=== PATIENT | male | born 1945 | race Caucasian/White ===

== ENCOUNTER 2022-05-16 08:00 | Outpatient (NON) | payer OTHER, MEDICARE, SELFPAY | END 2022-05-16 08:01 | disposition home or self-care (01) | LOC: ANHLAB 05-19 10:52 | PROVIDERS: PCP Internal Medicine; Visit Provider Nurse Practitioner | DX: C44.311 Basal cell carcinoma of skin of nose (principal) | CPT/HCPCS: 88305 ==

== ENCOUNTER 2022-06-19 13:15 | Outpatient (NON) | payer OTHER, MEDICARE, SELFPAY | END 2022-06-19 13:16 | disposition home or self-care (01) | PROVIDERS: PCP Internal Medicine; Visit Provider Nurse Practitioner | DX: C44.311 Basal cell carcinoma of skin of nose (principal) | CPT/HCPCS: 88305; 88331 ==

== ENCOUNTER 2023-11-21 17:37 | Emergency (ER) | payer OTHER, MEDICARE, SELFPAY ==
[2023-11-21 17:46] VITALS: BP 146/62; PULSE 57; RESP 16; TEMP 36.7; O2SAT 99
--- NOTE | 2023-11-21 18:05 | ED.WOUNDLAC ---
HPI - Wound/Laceration General Chief Complaint: Wound/Laceration Stated Complaint: Right arm skin tear Time Seen by Provider: 11/21/23 18:05 Source: patient Mode of arrival: ambulatory Limitations: no limitations History of Present Illness HPI narrative: 78 yo M here for tetanus vaccine. Was mowing lawn today and caught R arm on tree limb. Has skin tear to R forearm that he cleaned at home. Bleeding controlled on arrival. All systems reviewed and negative except as noted above. Related Data Home Medications Medication Instructions Recorded Confirmed albuterol sulfate 90 mcg/actuation 1 inh inhalation Q4-6H PRN 05/19/22 breath activated powder Shortness Of Breath Or Wheezing inhaler,sensor atorvastatin 40 mg tablet 40 mg PO DAILY 05/19/22 fluticasone propionate 50 1 spray intranasal DAILY 05/19/22 mcg/actuation nasal spray,suspension gabapentin 300 mg capsule 300 mg PO DAILY 05/19/22 isosorbide dinitrate 30 mg tablet 30 mg PO BID 05/19/22 loratadine 10 mg tablet (Claritin) 10 mg PO DAILY 05/19/22 metoprolol tartrate 25 mg tablet 12.5 mg PO BID 05/19/22 prasugrel 10 mg tablet 10 mg PO DAILY 05/19/22 amiodarone 200 mg tablet mg 11/21/23 aspirin 81 mg chewable tablet 11/21/23 Allergies Allergy/AdvReac Type Severity Reaction Status Date / Time No Known Allergies Allergy Unverified 11/21/23 17:45 Review of Systems Review of Systems: CONSTITUTIONAL: Denies fever, chills, or sweats. EYES: Denies visual changes, redness, or discharge. ENT: Denies rhinorrhea, congestion, sore throat, or otalgia. CARDIOVASCULAR: Denies chest pain, palpitations, or edema. RESPIRATORY: Denies cough or dyspnea. GASTROINTESTINAL: Denies abdominal pain, nausea, vomiting, or diarrhea. GENITOURINARY: Denies dysuria or hematuria. SKIN: reports skin tear to right forearm. MUSCULOSKELETAL: Denies back pain, joint pain, or myalgia. NEUROLOGIC: Denies headache, numbness, or weakness. PSYCHIATRIC: Denies anxiety or depression. All other systems reviewed are negative, except as documented in HPI. [facility] Past Medical History Medical History (Updated 11/21/23 @ 18:20 by Loree Jon NP) Acute arthritis Degenerative joint disease of cervical and lumbar spine Stroke Surgical History Surgical History H/O shoulder surgery History of hernia surgery Family History Family History Other Cancer Heart disease Hypertension Social History Social History Smoking status: Former smoker Tobacco type: cigarettes Alcohol intake: never Substance use: never Substance use type: does not use Lack of Transportation: No Lack of Food: Never True Current Housing: I Have Housing Concerned About Future Housing: No Difficulty Paying Gas/Electric Bills: No Difficulty Paying for Meds: No Currently Unemployed: No Education: Decline to Answer Difficulty w/ Childcare or Family Care: No Living arrangements: with family Comments At time of signature, agree with nursing past medical, surgical, social and family history. There is no relevant family history pertinent to the presenting complaint. Exam Narrative: GENERAL: This is a well-nourished, well-developed patient, in no apparent distress. HEAD: normocephalic, atraumatic. EYES: PERRL. Sclera clear/white. Vision is grossly intact. EARS: External ears normal NOSE: External nose normal NECK: Neck supple, non-tender without lymphadenopathy, masses or thyromegaly. CARDIOVASCULAR: Regular rate and rhythm without murmurs, gallops, or rubs. RESPIRATORY: Clear to auscultation. Breath sounds equal bilaterally. No wheezes, rales, or rhonchi. SKIN: warm, Dry, small skin tear to R forearm. Approx. 1.5 cm with surrounding bruising. ISTAP typeI NEURO: awake, alert, and oriented to person, place an
[2023-11-21] MEDS: TETANUS/DIPHTHERIA TOXOIDS ADSORB 0.5 ML VIAL (*BKC) IM (18:18)
== END 2023-11-21 18:28 | disposition home or self-care (01) ==
PROVIDERS: Emergency Provider Nurse Practitioner Family; PCP Internal Medicine
DX: S51.811A Laceration without foreign body of right forearm, initial encounter (principal); W22.8XXA Striking against or struck by other objects, initial encounter; Y93.H9 Activity, other involving exterior property and land maintenance, building and construction; Z23 Encounter for immunization; M19.90 Unspecified osteoarthritis, unspecified site; M47.812 Spondylosis without myelopathy or radiculopathy, cervical region; M47.816 Spondylosis without myelopathy or radiculopathy, lumbar region
CPT/HCPCS: 90471; 90714; 99213; G0463

== ENCOUNTER 2023-11-28 08:56 | Emergency (ER) | payer OTHER, MEDICARE, SELFPAY ==
[2023-11-28 09:08] VITALS: BP 155/63; PULSE 52; RESP 16; TEMP 36.6; O2SAT 99
--- NOTE | 2023-11-28 09:35 | ED.URI ---
HPI - URI/Sore Throat General Chief Complaint: Upper Respiratory Infection Stated Complaint: congestion,cough Time Seen by Provider: 11/28/23 09:26 Source: patient and RN notes reviewed Mode of arrival: ambulatory Limitations: no limitations History of Present Illness HPI Narrative: Patient presents today with a 3-4 day history of nasal congestion/sinus pressure, rhinorrhea, postnasal drip, mild sore throat, mild cough. Denies fever, shortness of breath. He has tried several things for his symptoms including Robitussin, NyQuil, Tylenol without relief. States his was sick with similar symptoms approximately 2 weeks ago. Related Data Home Medications Medication Instructions Recorded Confirmed albuterol sulfate 90 mcg/actuation 1 inh inhalation Q4-6H PRN 05/19/22 11/28/23 breath activated powder Shortness Of Breath Or Wheezing inhaler,sensor atorvastatin 40 mg tablet 40 mg PO DAILY 05/19/22 11/28/23 fluticasone propionate 50 1 spray intranasal DAILY 05/19/22 11/28/23 mcg/actuation nasal spray,suspension gabapentin 300 mg capsule 300 mg PO DAILY 05/19/22 11/28/23 isosorbide dinitrate 30 mg tablet 30 mg PO BID 05/19/22 11/28/23 loratadine 10 mg tablet (Claritin) 10 mg PO DAILY 05/19/22 11/28/23 metoprolol tartrate 25 mg tablet 12.5 mg PO BID 05/19/22 11/28/23 prasugrel 10 mg tablet 10 mg PO DAILY 05/19/22 11/28/23 amiodarone 200 mg tablet 200 mg PO DAILY 11/21/23 11/28/23 aspirin 81 mg chewable tablet 81 mg PO DAILY 11/21/23 11/28/23 Allergies Allergy/AdvReac Type Severity Reaction Status Date / Time No Known Allergies Allergy Verified 11/28/23 09:20 Review of Systems Review of Systems: CONSTITUTIONAL: Denies body aches, fever, chills, or sweats. EYES: Denies visual changes, redness, or discharge. ENT: Denies otalgia.+ sinus pressure, congestion, rhinorrhea, postnasal drip, sore throat CARDIOVASCULAR: Denies chest pain, palpitations, or edema. RESPIRATORY: Denies dyspnea.+ occasional cough GASTROINTESTINAL: Denies abdominal pain, nausea, vomiting, or diarrhea. GENITOURINARY: Denies dysuria or hematuria. SKIN: Denies rash, itching, or wounds. MUSCULOSKELETAL: Denies back pain, joint pain, or myalgia. NEUROLOGIC: Denies headache, numbness, tingling, or weakness. PSYCH: Denies depression or anxiety. [facility] Past Medical History Medical History Acute arthritis Degenerative joint disease of cervical and lumbar spine Stroke Surgical History Surgical History H/O shoulder surgery History of hernia surgery Family History Family History Other Cancer Heart disease Hypertension Social History Social History Smoking status: Former smoker Tobacco type: cigarettes Alcohol intake: never Substance use: never Substance use type: does not use Lack of Transportation: No Lack of Food: Never True Current Housing: I Have Housing Concerned About Future Housing: No Difficulty Paying Gas/Electric Bills: No Difficulty Paying for Meds: No Currently Unemployed: No Education: Decline to Answer Difficulty w/ Childcare or Family Care: No Living arrangements: with family Comments At time of signature, I have reviewed and agree with nursing past medical, surgical, social and family history unless otherwise noted. Please see nursing chart for further information. There is no relevant family history pertinent to the presenting complaint Exam Narrative: GENERAL: Well-appearing, well-nourished, and in no acute distress. HEAD: Normocephalic, atraumatic. EYES: EOMI. No redness or drainage. Conjunctivae normal. ENT: Mucous membranes pink and moist. Nares clear. Turbinates normal bilaterally. No rhinorrhea. TMs normal bilaterally. Throat n
== END 2023-11-28 09:42 | disposition home or self-care (01) ==
PROVIDERS: Emergency Provider Nurse Practitioner; PCP Internal Medicine
DX: J06.9 Acute upper respiratory infection, unspecified (principal); Z87.891 Personal history of nicotine dependence; M47.812 Spondylosis without myelopathy or radiculopathy, cervical region; M47.816 Spondylosis without myelopathy or radiculopathy, lumbar region; Z86.73 Personal history of transient ischemic attack (TIA), and cerebral infarction without residual deficits
CPT/HCPCS: 99211; G0463

== ENCOUNTER 2024-03-31 10:49 | Outpatient (CLI) | payer OTHER, MEDICARE, SELFPAY ==
--- OUTSIDE RECORDS SUMMARY | 2024-03-31 11:39 | XMS_ITS | Referral Summary ---
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 This disclosure is being madepursuant to the Care Everywhere program and may not contain all information available regarding this patient. Last updated 17.[employer] [facility] Allergies No known active allergies Medications * Be aware that medications may not be up to date on this document. Alwaysverify current medications with the patient. Medication Sig Dispensed Refills Start Date End Date Status fluticasone propionate (FLONASE) 50 MCG/ACT nasal spray [place] 1 spray into the nose once daily Active gabapentin (NEURONTIN) 300 MG capsule TAKE 1 CAPSULE BY MOUTH THREE TIMES A DAY 01/06/2020 Active roflumilast (DALIRESP) 500 MCG tablet Take 500 mcg by mouth once daily Active prasugrel (EFFIENT) 10 MG tablet Take 10 mg by mouth once daily 07/16/2019 Active atorvastatin (LIPITOR) 40 MG tablet TAKE 1 TABLET BY MOUTH EVERY DAY 02/26/2020 Active Loratadine 10 MG Take 10 mg by mouth once daily Active meloxicam (MOBIC) 15 MG tablet TAKE 1 TABLET BY MOUTH EVERY DAY 02/05/2020 Active metoprolol succinate XL 24hr (TOPROL XL) 25 MG tablet TAKE 1 TABLET BY MOUTH EVERY DAY 03/10/2020 Active tiotropium (SPIRIVA RESPIMAT) 2.5 MCG/ACT inhaler Inhale 2 puffs by mouth Active ISOSORBIDE DINITRATE PO Active ibuprofen (MOTRIN) 800 MG tablet Take 800 mg by mouth every 6 hours as needed for Pain Active diphenhydramine 12.5mg/ml, 30ml,; visc lidocaine 2%, 30ml,; maalox, 30ml, (MIRACLE MOUTHWASH) SUSP 1:1:1 solution of viscous lidocaine 2%, Maalox, diphenhydramine 12.5mg/5ml elixir 120 mL 06/05/2020 Active Social History Tobacco Use Types Packs/Day Years Used Date Smoking Tobacco: Former Cigarettes Smokeless Tobacco: Never Sex and Gender Information Value Date Recorded Sex Assigned at Not on file Gender Identity Not on file Sexual Orientation Not on file Last Filed Vital Signs Vital Sign Reading Time Taken Comments Blood Pressure 140/72 06/05/2020 3:32 PM CDT Pulse 71 06/05/2020 3:32 PM CDT Temperature 36.6 C (97.8 F) 06/05/2020 3:32 PM CDT Respiratory Rate 16 06/05/2020 3:32 PM CDT Oxygen Saturation 98% 06/05/2020 3:32 PM CDT Inhaled Oxygen Concentration - - Weight 86.2 kg (190 lb) 06/05/2020 3:32 PM CDT Height 175.3 cm (5' 9 ) 06/05/2020 3:32 PM CDT Body Mass Index 28.06 06/05/2020 3:32 PM CDT Plan of Treatment Not on file Care Teams Front End Wheel Loader Operator Relationship Specialty Start Date End Date Fredy Malagon MD [address] Malagon [address] [place] [id number] PCP - General 06/09/22
--- OUTSIDE RECORDS SUMMARY | 2024-03-31 11:39 | XMS_ITS | Clinical Summary ---
Author Organization 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,non-owned Affiliates and Associated Physician Practices is amultiple site organization consisting of ambulatory clinics and hospital sitesin [place], [place], [place] and [place]. This disclosure is being madepursuant to the Care Everywhere program and may not contain all information available regarding this patient. Last updated 17.[facility] [facility] Allergies No known active allergies Medications * Be aware that medications may not be up to date on this document. Alwaysverify current medications with the patient. Medication Sig Dispensed Refills Start Date End Date Status fluticasone propionate (FLONASE) 50 MCG/ACT nasal spray [place] 1 spray into the nose once daily [...] 06/05/2020 3:32 PM CDT Plan of Treatment Health Maintenance Due Date Last Done Comments MEDICARE AWV 12 MONTHS 1945 HEPATITIS C SCREENING 08/10/1965 DTAP/TDAP/TD VACCINES (1 - Tdap) 08/14/1966 PNEUMOCOCCAL VACCINE 50+ (1 of 1 - PCV) 08/14/1997 ZOSTER VACCINE (1 of 2) 08/14/1997 Respiratory Syncytial Virus (RSV) Vaccine Pt: or over 60 yrs (1 - 1-dose 75+ series) 08/14/2022 COVID-19 VACCINE (3 - 2023-2 5 season) 2023 05/09/2020, 04/18/2020 INFLUENZA VACCINE (#1) 2023 , 10/16/2018 DEPRESSION SCREENING 02/20/2024 HEPATITIS B VACCINE Aged Out No longe r eligible based on patient's age to complete this topic HIB VACCINE Aged Out No longer eligi ble based on patient's age to complete this topic HPV VACCINE Aged Out No longer eligi ble based on patient's age to complete this topic MENINGOCOCCAL (Group B) VACCINE Aged Out No longer eligible b ased on patient's age to complete this topic MENINGOCOCCAL VACCINE Aged Out No danielle emmanuel eligible based on patient's age to complete this topic Care Teams Solder Making Laborer Relationship Specialty Start Date End Date Fredy Malagon MD [address] [place] [id number] PCP - General 06/09/22
--- OUTSIDE RECORDS SUMMARY | 2024-03-31 11:39 | XMS_ITS | Referral Summary ---
Author Organization [facility] Address [address] [place] [address] Care Team Providers Care Soils Technician Name Role Phone Fredy Malagon MD Primary Care Provider [phone] Trav Molina MD Unavailable Temo Ureña MD Unavailable [phone] Encounters Date Type Department Care Team Description 03/21/2024 Orders Only [facility] [address] [place] [id number] Fredy Malagon MD Encounter for examination of ears and hearing after failed hearing screening (Primary Dx) 02/27/2024 Telephone [facility] [address] [place] [address] Jose Miguel Cha MA 02/26/2024 8:45 AM DRAFTSPERSON Office Visit [facility] at [address] [place] [address] Temo Ureña MD PAOD (peripheral arterial occlusive disease) (CMS/HCC) (HCC) (Primary Dx); Carotid stenosis, bilateral; Mixed hyperlipidemia; 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 (CMS/HCC) (HCC) 02/11/2024 12:45 PM DRAFTSPERSON - 02/11/2024 11:59 PM DRAFTSPERSON Hospital Encounter [facility] [address] [place] [address] Atherosclerosis of [place]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, bilateral legs (HCC) Discharge Disposition: Discharge to home or self care 02/06/2024 Orders Only [facility] [address] [place] [phone] Temo Ureña MD Atherosclerosis of [place]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, bilateral legs (HCC) (Primary Dx) 02/04/2024 7:21 AM DRAFTSPERSON - 02/04/2024 11:59 PM DRAFTSPERSON Hospital Encounter [facility] [address] [place] [address] PVC (premature ventricular contraction) Discharge Disposition: Discharge to home or self care 02/04/2024 7:21 AM DRAFTSPERSON - 02/04/2024 11:59 PM DRAFTSPERSON Hospital Encounter [facility] [address] [place] [address] Atherosclerosis of [place]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, bilateral legs (HCC); Atherosclerosis of [place]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, right leg (HCC) Discharge Disposition: Discharge to home or self care 01/10/2024 9:45 AM DRAFTSPERSON Office Visit [facility] [address] [place] [address] Fredy Malagon MD History of atherosclerotic heart disease (Primary Dx); Medicare annual wellness visit, subsequent; Mixed hyperlipidemia; Thyroid nodule; Anxiety; Essential hypertension from Last 3 Months Allergies Active Allergy Reactions Criticality Noted Date Comments Caffeine Anxiety Low 10/24/2012 Levofloxacin Dizziness,Nausea only Reaction: dizzy, nausea, Ramipril Cough Low 04/04/2018 Salicylamide Anxiety Low 10/24/2012 Takes meloxicam at home 04/18/19 Medications fluticasone (FLONASE) 50 mcg/actuation nasal spray Administer 1 spray into each nostril daily Active albuterol HFA (PROVENTIL HFA,VENTOLIN HFA,PROAIR HFA) 90 mcg/actuation inhaler Inhale 2 puffs every 4 (four) hours as needed for wheezing or shortness of breath. 18 g 04/06/19 19 Active TiZANidine (ZANAFLEX) 2 mg capsuleIndicati ons:Chronic midline low back pain with bilateral sciatica Take 1 capsule (2 mg total) by mouth nightly as needed for muscle spasms 14 capsule 10/19/19 21 Active Additional Information Patient not taking.Reported on 02/26/2024 traMADoL (ULTRAM) 50 mg tabletIndicatio ns:Chronic midline low back pain with bilateral sciatica Take 1 tablet (50mg total) by mouth twice daily as needed for back pain. 14 tablet 12/15/19 21 Active Additional Information Patient not taking.Reported on 02/26/2024 aspirin 81 mg chewable tablet Take 1 tablet (81 mg total) by mouth daily 30 tablet 11 03/06/19 24 Active atorvastatin (LIPITOR) 80 mg tablet Take 1 tablet (80 mg total) by mouth daily 90 tablet 3 04/09/19 24 025 Active metoprolol XL (TOPROL-XL) 50 mg extended release tablet Take 1 tablet (50 mg total) by mouth daily 90 tablet 3 06/25/19 24 025 Active loratadine (CLARITIN) 10 mg tablet Take 1 tablet (10 mg total) by mouth daily Active naproxen sodium 220 mg capsule Take 200 mg by mouth every 4 (four) hours as needed (pain) Active amiodarone (PACERONE) 200 mg tablet Take 1 tablet (200 mg total) by mouth daily 30 tablet 06/29/19 24 025 Active HYDROcodone-oleg taminophen (NORCO) 5-325 mg per tabletIndicatio ns:Pain Take 1-2 tablets by mouth every 4 (four) hours as needed for pain Do not exceed 8 tablets/day. 20 tablet 09/01/19 24 Active gabapentin (NEURONTIN) 300 mg capsule TAKE 1 CAPSULE BY MOUTH TWICE A DAY 60 capsule 5 11/07/19 24 Active promethazine-DM (PROMETHAZINE-D M) 1.25-3 mg/mL syrup Take 5 mL by mouth every 4 (four) hours as needed for cough 120 mL 11/09/19 24 Active prasugreL (EFFIENT) tablet TAKE 1 TABLET BY MOUTH EVERY DAY 30 tablet 11 11/22/19 24 Active isosorbide mononitrate ER (IMDUR) 30 mg 24 hr tablet TAKE 1 TABLET BY MOUTH EVERY DAY 30 tablet 11 03/28/19 25 Active isosorbide mononitrate ER (IMDUR) 30 mg 24 hr tablet TAKE 1 TABLET BY MOUTH EVERY DAY 90 tablet 3 12/19/19 23 025 Discontinued Active Problems Problem Noted Date Diagnosed Date Viral URI with cough 11/09/2023 Assessment & Plan (11/15/2023 9:25 PM CDT): Acute, URI symptoms for 1 week. Tested negative for COVID at home. Mild frontal sinus tenderness and clear postnasal drip noted on exam. No other acute findings, vitals stable. Likely viral, discussed typical timeline. We will prescribe promethazine DM as needed for cough. You may take a cough suppressant to calm your cough (Robitussin, delsym, or nyquil). If your cough is productive or you have tight chest congestion with thick mucus- you can use a cough expectorant like Mucinex. Benadryl/Zyrtec/oscar can be used to dry up a runny nose or post nasal drip. AVOID DECONGESTANTS. Flonase or Nasacort will also help with sinus pressure and nasal drip both. Tylenol/Ibuprofen as needed for pain. Increase fluids (water) Cool mist humidifier at night Use sinus rinses to help flush bacteria and help with congestion. Encouraged honey, marshmallows, gelatin, or chloraseptic to help coat throat. Call with any worsening or persistent symptoms. VT (ventricular tachycardia) 11/05/2023 Acute right-sided thoracic back pain 09/09/2023 Assessment & Plan (09/09/2023 4:47 PM CDT): Patient is seen on 08/29/2023 secondary to back pain. Stated he had a fall at home approximately 9 days prior to his visit with me was in midclavicular line approximately 10th rib posteriorly. Not any hematuria denied any problems breathing worse with certain movement. Patient was taking ibuprofen with some relief. Exam no shortness a breath lungs are clear no wheezing no rhonchi no acute distress.. Aware of the treatment for fractured rib his pain control. Pain in the time of exam is from a 3-6/10 level. Depending on activity and time of day Paroxysmal ventricular tachycardia 06/25/2023 Assessment & Plan (07/10/2023 4:42 PM CDT): Patient was experiencing dizziness 30 day Holter monitor done revealing a 16 beat ventricular tachycardia. He has had increase in his metoprolol and he is now on amiodarone. Is managed obviously by Cardiology. Patient has made me aware of a change in his health since his last visit with me and reason for changes in medications. Near syncope 04/30/2023 Assessment & Plan (07/10/2023 4:44 PM CDT): Evaluation for Cardiology for syncopal episode nonsustained V-tach found on thirty day night monitor monitor. Claudication 03/06/2023 Anxiety 02/22/2023 Assessment & Plan (01/11/2024 1:14 PM DRAFTSPERSON): Anxiety stable at this time no longer on Lexapro or BuSpar Assessment & Plan (02/23/2023 5:03 PM DRAFTSPERSON): Patient has noticed increased anxiety expressed in the former being very short tempered. Getting upset very quickly or a low threshold in terms of what triggers him to be upset. Patient is also having repetitive thoughts in terms of completing task I am going to start him on BuSpar 10 mg mg b.i.d. advised me side effects advised him if it does not work increase the dose by 2 tablets per day. And this is not effective he needs to contact me. Patient expresses regret of retiring.. 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 We did discuss some tape that he may enjoy he does less than 2 westerns in a shared with him the books that I less than 2 on tape. He has listen the pod cast he enjoys. Initially as started this gentleman on Lexapro however does of drug interaction with effient anticoagulant use because the patient has stent placement. For he is on BuSpar starting low-dose Skin lesion 01/08/2023 Assessment & Plan (01/08/2023 5:33 PM DRAFTSPERSON): Patient is a right side of his scalp frontal region very suggestive of basal cell carcinoma. He previously had a basal cell carcinoma earlier this year was successfully removed patient is referred back to [facility] plastic surgery where he previously had surgery. 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 Looking at has a small create of formation consistent with basal cell carcinoma.. Refer to plastic surgery appointment for 05/15/[address] Kiet Lancaster with [facility] has been made. History of exudative age-related macular degener ation 12/20/2021 History of atherosclerotic heart disease 022 Left hip pain 10/19/2020 Assessment & Plan (08/18/2021 11:54 AM CDT): Patient pain is improved. He had MRIs of his back in thought back problems were aggravate hip is uncertain as to etiology is improving. Assessment & Plan (10/19/2020 7:47 AM CDT): Patient is reporting pain in the left groin that is sharp and improves with time. Most likely this pain is radiating from the lower back. However, given its location we will do imaging of the left hip to r/o significant osteoarthritis or fracture. Abnormal finding on thallium stress test 021 PAOD (peripheral arterial occlusive disease) (CM S/HCC) 09/30/2019 Assessment & Plan (01/11/2024 1:11 PM DRAFTSPERSON): Patient advised me he is comfortable with ambulating he has had stents placed in his lower legs and under care of Dr. Ureña invasive Cardiology Assessment & Plan (07/10/2023 5:00 PM CDT): 70% stenosis right PA D patient has a follow-up with cardiology next week remains on aspirin his lipid profiles in therapeutic range treated with atorvastatin 80 mg daily Chronic bilateral low back pain with sciatica Assessment & Plan (08/18/2021 11:54 AM CDT): Patient has seen multiple specialists over the past year regarding his back. This includes pain specialist and neurosurgeon.. Back pain is improved this time he ambulates well without any difficulty no significant neuropathy. Will continue present medications no change in therapy. Patient reasonable comfortable he has some degree of pain between 2 and 4/10. No neurological deficit Assessment & Plan (01/24/2021 5:40 PM DRAFTSPERSON): Patient is having a flare for back pain is under care Pain Clinic they gave him a epidural injection a work perfect for 1 day. His pain is keeping up at night difficulty walking because of pain neurological deficit he has appointment with the Pain Clinic in 1 week at this point I am going to put him on prednisone 20 mg twice a day for 10 day supply. Reviewed his recent CT scan of backed shows severe spinal stenosis. It is my understanding he will be talking with the pain clinic about a possible referral to a surgeon Assessment & Plan (12/14/2020 10:54 AM CDT): Patient continues to have complaints of persistent low back pain. He has completed two rounds of steroids and he states that they have been helpful. However, as soon as they are done he states pain returns. He has yet to begin PT as recommended. 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 Have discussed with patient that he needs to begin PT, which he is agreeable to and that he needs to remain off work. He was given work note until f/u with Dr. Malagon can be scheduled. We will also check inflammatory markers with ESR and CRP as noted per Dr. Malagon last visit. We will refer to pain management and for possible steroid injection as well. Will also send tramadol x 7 days for pain. He will f/u on 12/24/20 or sooner if needed. Assessment & Plan (11/01/2020 2:26 PM CDT): Back pain 60-70% improved. Patient can do daily functions without difficulty. Will leave a refill for prednisone case he has a flare-up in the near future Assessment & Plan (10/27/2020 2:29 PM CDT): Patient advised me his back pain is getting worse. He has great difficulty going from sitting test standing in the morning is walking because of pain pain goes across his back approximately L3 down to L5 and pain goes down into his buttocks bilateral does not go down to his knee. On exam patient appears to be very uncomfortable going from sitting standing walks very slow.. A posterior buttocks and thigh hurts more than the right. X-rays of his hips and low back area performed on 10/19/2020 of x-rays were normal arthritic changes apparent in lumbar area. Plans at this time prednisone 20 mg twice a day 5 days.. No improvement look for other causes of back pain including and sed rate in checking for multiple myeloma. Assessment & Plan (10/19/2020 7:46 AM CDT): Patient is reporting for the last several months, he has had increasing low back pain that radiates into the buttocks and bilateral LE. Pain is worse after sitting a prolonged period and better after ambulation. Patient symptoms and exam findings are consistent with bilateral sciatica. He has been using meloxicam and adding aleve at home with some improvement. He states he has been on the meloxicam 3 years and has not seen great pain improvement. We discussed that he cannot use both meloxicam or aleve, it needs to be either or and would recommend he use tylenol alone with his history of cardiac disease. Patient voiced understanding. He was offered tramadol to help with pain, but declined as he has used in the past and did not find helpful. Given that we will begin physical therapy and add a muscle relaxer. We will do imaging of L-spine today to r/o any fracture or misalignment. He can use OTC therapies as well such as tylenol, ice/heat and muscle creams. He will return in 4 weeks for recheck or sooner if needed. Assessment & Plan (09/25/2019 3:56 PM CDT): Patient 90% improved no further therapy indicated. Assessment & Plan (09/11/2019 11:09 AM CDT): Low back pain approximate 10% better. Patient not using ibuprofen on daily basis. Patient has absolutely no sciatica known bladder or bowel problems no neurovascular compromise. Advised patient he can use ibuprofen daily. He found heat to his back does help. He has a topical back pad with lidocaine may be of help. Further patient is indicated. Patient again is not severely ill he is slowly getting better.. He is concerned about muscle relaxant which I do not think a help him he has very little stiffness. Assessment & Plan (09/02/2019 6:19 PM CDT): Patient developed acute low back pain 5 days ago after cutting the yd this is not unusual activity for him. Pain for the health 5 down to cheeks of his buttocks down about [address]. Patient is improving he has been using 800 mg of ibuprofen tonight putting he and taking warm showers. Patient issue could not stand up straight he can now do this without any difficulty.. Patient's exam begin a is full flexion of his knees and and hips no pain on palpating over back. No neurological deficit.. Recommend conservative treatment continue ibuprofen at night a into once a day if he is needs to. Anticipate full recovery. Patient's advised very good chance this will reoccur at some point in the future. Atherosclerosis of [place] co ronary artery of [place] heart with angina pectoris ([facility]) 03/07/2019 Carotid stenosis, bilateral 03/07/2019 Atherosclerosis of [place] artery of both lower e xtremities 01/10/2019 Overview (01/10/2019): Added automatically from request for surgery [id number] Assessment & Plan (12/20/2021 5:36 PM CDT): PATIENT CONTINUES SEE CARDIOLOGY YEARLY SO HAS PA D IS STABLE AT THIS TIME Hyperlipidemia 01/07/2019 Assessment & Plan (01/11/2024 1:17 PM DRAFTSPERSON): Patient is maintained on atorvastatin 80 mg daily lipid profile in therapeutic range no change in therapy Component Latest Ref Rng 05/26/2023 Cholesterol 30 - 199 mg/dL 106 Triglycerides <=149 mg/dL 54 HDL Cholesterol >=40 mg/dL 26 (L) LDL Cholesterol Calc <=129 mg/dL 69 Non-HDL Cholesterol mg/dL 80 Chol/HDL ratio 4 Legend: (L) Low Mixed hyperlipidemia 01/07/2019 Assessment & Plan (07/10/2023 4:47 PM CDT): Patient's lipid profile at target he is on atorvastatin 80 mg daily Component Latest Ref Rng 05/26/2023 Cholesterol 30 - 199 mg/dL 106 Triglycerides <=149 mg/dL 54 HDL Cholesterol >=40 mg/dL 26 (L) LDL Cholesterol Calc <=129 mg/dL 69 Non-HDL Cholesterol mg/dL 80 Chol/HDL ratio 4 Legend: (L) Low Atherosclerosis of [place] of both lower extremities with intermittent claudication 10/02/2018 Overview (10/02/2018): Added automatically from request for surgery [id number] Assessment & Plan (12/24/2018 6:23 PM DRAFTSPERSON): Patient has successful stent placed in the left lower extremity October 12, 2018. Patient is less symptomatic as result.. Still being observed for problem with the right lower extremities as well as carotid ultrasounds have been completed. He is under care of Cardiology . Thyroid nodule 08/18/2018 Assessment & Plan (01/11/2024 1:11 PM DRAFTSPERSON): Date on thyroid nodule has been ordered by his marble installer this is scheduled for next week Assessment & Plan (12/24/2018 6:25 PM DRAFTSPERSON): Patient's a sonogram schedule for February 2019. Assessment & Plan (09/09/2018 6:16 PM CDT): Patient's has a pulmonary nodule confirmed on sonogram is recommended he do surveillance will repeat the ultrasound in 6 months. Assessment & Plan (08/24/2018 6:58 PM CDT): Thyroid nodule was found on recent pulmonary imaging referral for ultrasound of thyroid has been made. Assessment & Plan (08/18/2018 1:24 PM CDT): HRCT on July 30, 2018 has shown: 1. Mild to moderate pulmonary emphysema with bilateral bronchiectasis greater than lower lobes, 2. No Pulmonary consolidation, 3. Indeterminate 12 mm left lobe thyroid nodule. Suggest ultrasound evaluation. The patient was advised to see his primary care physician for thyroid nodule. BMI 31.0-31.9,adult 07/03/2018 Assessment & Plan (08/17/2018 11:45 AM CDT): Stable BMI. No history of weight loss over the past 12 months. Assessment & Plan (07/03/2018 11:03 PM CDT): Weight management counseling was provided for 10 minutes. Lifestyle change and diet modification were discussed with the patient in detail. Chronic cough 03/26/2018 Assessment & Plan (07/01/2020 12:14 PM CDT): Patient has history of chronic cough, but patient reports recently it is increased and more frequent. We will do CXR to r/o any acute cardiopulmonary process. He will continue outlined sinus care and steroids. If persistent will consider PFTS. Assessment & Plan (12/24/2018 6:20 PM DRAFTSPERSON): Patient non care jump roll operator at [facility] diagnosis emphysema he is doing reasonably well with present medications of albuterol HFA p.r.n. Her medication Acapella this is according to the jump roll operator notes Assessment & Plan (08/24/2018 6:58 PM CDT): Patient was seen by jump roll operator Dr. Cárdenas made a diagnosis of emphysema with bronchiectasis in place him on antibiotic. Patient was given antibiotic for week Augmentin is advised according to the patient that he needs to have a maintenance antibiotic following that.. Is no mention in his pulmonology note regarding maintenance antibiotic. Patient has improved I reviewed the entire note his PFTs were good his 6 minutes walk was excellent.. At this time refer this patient on jump roll operator hopefully at [facility]. Patient is taking the medication Treligy . Patient's coughing is less. Assessment & Plan (08/18/2018 1:27 PM CDT): Possible causes: 1. Chronic postnasal drip, 2. Chronic bronchiectasis. Today the patient was started on Daliresp and a course of Augmentin. He was also advised to continue with combination of Flonase and cetirizine. Assessment & Plan (08/17/2018 12:12 PM CDT): Possible causes: 1. Chronic postnasal drip, 2. Chronic bronchitis. 3. GERD PFT has shown mild impairment of diffusion capacity but no evidence of airway hyperreactivity. Six minutes walk test has shown no desaturation. The patient was advised to continue with combination of cetirizine and fluticasone nasal spray. He was also started on combination of Spiriva Respimat and gabapentin. HRCT was ordered for evaluation of ILD. Assessment & Plan (07/03/2018 11:08 PM CDT): Etiology of chronic cough is multifactorial includin. Chronic postnasal drip, 2. Possible airway hyperreactivity, 3. Chronic bronchitis. The patient was advised to continue with combination of cetirizine and fluticasone nasal spray. We will also continue with albuterol inhaler 2 puffs as needed. PFT, 6 MWT and sputum culture for AFB and air week organisms were ordered. Assessment & Plan (06/24/2018 5:45 PM CDT): Patient reported that his cough decreased by 90% after discontinue the Oleg inhibitors. However his inhalers also helped him with respect cough. Now he is getting some return of the cough. Patient has never been treated with anti GERD medication. Will start him on omeprazole.. Because of chronicity of this particular problem advised him he needs to see pulmonology. Assessment & Plan (04/15/2018 11:57 AM DRAFTSPERSON): Patient's cough is changed to dry cough is pretty much resolved 75% improved. Went to emergency room approximately 10 days ago a nonstop coughing more ER physician advised him this cough is probably medication related/OLEG-inhibitor ramipril. Patient now has a productive cough clear to yellow sputum he does not feel sick. Plans Shannon was given The mucus production. PATIENT ADVISED TO GIVE ME A CALL NEXT SUNDAY GIVE ME A PRECISE UP-TO-DATE REPORT REGARDING HIS COUGHING STATUS. Assessment & Plan (04/04/2018 2:47 PM DRAFTSPERSON): Patient's now the advised me that he is having a nonproductive cough 80 90% of the time. This is associated with tickle in his throat. Patient was questioned on previous visit regarding a productive cough and was my impression that record records have a productive cough. He says cough is really been going on closer to 3 months and is most exam nonproductive 80 that I would pursue the time. This time discontinue ramipril/OLEG-inhibitor. Patient advised to give me a call if he still coughing a 1 month out anticipate his cough for week resolved in 2 weeks. Patient does not feel sick and has no respiratory compromise with cough. I will see this patient next several months will monitor his blood pressure. Assessment & Plan (03/26/2018 10:56 AM DRAFTSPERSON): Patient has a consistent productive cough since February 10/6 weeks ago. Patient's bringing up thick green is Robitussin DM does help. He has no chest pain has no fever no chills and is head congestion is improved by 80%. Chest x-ray I did not identify any acute changes. Examined if his lungs are normal. Plans at this time doxycycline 100 mg twice a day for 10 days. Patient give me a progress report for around the March which will mean 8 weeks out since onset of his cough. He is not 90% improved will get a CT scan of his chest and referral to pulmonology. Patient was advised this possibly is assess thick tenacious sputum that he may have to be suction out. Osteoarthritis of multiple joints 02/28/2017 Assessment & Plan (07/08/2022 3:18 PM CDT): Patient less symptomatic with joint pains at this time. Assessment & Plan (02/28/2017 4:20 PM DRAFTSPERSON): Osteoarthritis occasional joint pains Naprosyn works very well for minutes tolerated does not increased abdominal pain. Chronic rhinitis 02/28/2017 Assessment & Plan (02/28/2017 4:20 PM DRAFTSPERSON): Patient utilizing Flonase effective in helping with this chronic rhinitis Medicare annual wellness visit, subsequent 02/26 Assessment & Plan (01/11/2024 12:57 PM DRAFTSPERSON): History and physical completed patient's health risk assessment health maintenance reviewed and addressed. Patient's feels well he does not identify any new health problems since his last annual exam. He continues to follow-up with cardiology. Assessment & Plan (01/08/2023 5:31 PM DRAFTSPERSON): History and physical completed patient's health risk assessment health maintenance reviewed in addressed. New health problem patient's swishes lesion on right side of his scalp referral to Plastic surgery made. History of basal cell carcinoma June 2022 successful removed. Recent flu vaccine which is not shown up in his file yet Assessment & Plan (12/20/2021 5:28 PM CDT): History and physical completed health maintenance health wrist reviewed in addressed patient has completed COVID and flu vaccines for this year. He is getting a colonoscopy a on tomorrow is a follow-up to his positive in a Cologuard test. Assessment & Plan (08/18/2021 12:22 PM CDT): Patient has agreed to get a DNA Cologuard studies screening for colon cancer request for DNA Cologuard Assessment & Plan (12/24/2018 6:27 PM DRAFTSPERSON): Patient's history and physical completed health risk assessment health maintenance reviewed. Immunization discussed in deficiency is addressed.. Please see assessment and plans on going chronic health problems Assessment & Plan (02/28/2017 4:17 PM DRAFTSPERSON): History and physical completed patient is very concerned regarding development of cancer. His concerns grow out of a experience of seeing several family members with cancers was good friends way cancer. This time his laboratory results from previous visits reviewed will order PSA level today is exam is unremarkable//normal adult male exam. 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 Viagra prescribed his insurance will pay for 8 tablets per month. Side effects of medications discussed. Essential hypertension 08/31/2016 Assessment & Plan (01/11/2024 1:13 PM DRAFTSPERSON): Blood pressure 142/60 predominant blood pressure this year has been at goal. No change in therapy he is on metoprolol 50 mg daily Assessment & Plan (11/15/2023 9:24 PM CDT): Chronic, at goal. BP stable in office today on current therapy. No acute findings on exam.advised to avoid decongestant use with current URI, see plan above. Continue metoprolol and low salt diet. Assessment & Plan (07/10/2023 4:46 PM CDT): Blood pressure not controlled on today's visit 152/70 visit on 06/29/2023 with Cardiology 171/84.. On that day at a pulse of 49 making no changes in patient's blood pressure medications. He has a follow-up appointment with Cardiology in the next 2-3 weeks medications being made based on his findings on cardiac arrhythmia and blood pressure Assessment & Plan (01/08/2023 5:32 PM DRAFTSPERSON): Pressure well controlled patient is tolerating medications Assessment & Plan (07/08/2022 3:17 PM CDT): Blood pressure remains well controlled patient is tolerating medications no change in therapy Assessment & Plan (04/20/2022 2:07 PM DRAFTSPERSON): Blood pressure remains well controlled no change in therapy Assessment & Plan (12/20/2021 5:28 PM CDT): Blood pressure well controlled patient is tolerating medications no change in therapy Assessment & Plan (11/01/2020 2:29 PM CDT): Blood pressure well controlled patient tolerating medications no change in therapy. Assessment & Plan (09/02/2019 6:19 PM CDT): Blood pressure remains well controlled patient is tolerating medication no change in therapy Assessment & Plan (12/24/2018 6:23 PM DRAFTSPERSON): Blood pressure is very well control no change in therapy patient is tolerating medications Assessment & Plan (08/24/2018 7:01 PM CDT): Hypertension remains well control no change in therapy see him back in the next several months regarding his hypertension management. Patient is tolerating medications. Assessment & Plan (04/15/2018 12:03 PM DRAFTSPERSON): Hypertension is well controlled at this time. Ramipril/Oleg inhibitor was discontinued secondary to cough. Few days ago he felt real dizzy a and headache he went back on ramipril for 1 day and the symptoms resolved. At this time and start him on amlodipine 2.5 mg 1 tablet daily.. Patient's warnings side effect swelling or may be too strong for him. Assessment & Plan (01/17/2017 11:38 AM DRAFTSPERSON): Hypertension is unchanged. Continue current treatment regimen. Dietary sodium restriction. Regular aerobic exercise. Continue current medications. Blood pressure will be reassessed at the next regular appointment. Assessment & Plan (08/31/2016 5:16 PM CDT): Hypertension is unchanged. Continue current treatment regimen. Blood pressure will be reassessed at the next regular appointment. Mild intermittent asthma 08/31/2016 Assessment & Plan (02/28/2017 4:21 PM DRAFTSPERSON): Albuterol p.r.n. for asthma works effectively for him. Assessment & Plan (08/31/2016 5:17 PM CDT): Asthma Control using albuterol HFA on a p.r.n. Basis. Resolved Problems Problem Noted Date Diagnosed Date Resolved Date VT (ventricular tachycardia) 06/26/2023 07/10/2023 Assessment & Plan (07/10/2023 4:40 PM CDT): Patient was experiencing dizziness 30 day Holter monitor done revealing a 16 beat ventricular tachycardia. He has had increase in his metoprolol and he is now on amiodarone. Is managed obviously by Cardiology. Patient has made me aware of a change in his health since his last visit with me and reason for changes in medications. Positive colorectal cancer s creening using Cologuard test 09/12/2021 07/10/2023 Overview (09/12/2021): Added automatically from request for surgery [id number] Assessment & Plan (12/20/2021 5:25 PM CDT): Colonoscopy scheduled 12/21/2021 Pain in finger of left hand 08/25/2020 01/11/2024 Assessment & Plan (08/25/2020 12:50 PM CDT): Patient presents with acute pain in the 1st digit of the left hand x 1 week. Pain is achy and near constant. He has has full ROM. He has pain with grasping and point tenderness of the MCP joint. There is suspicion for arthritis vs acute process. We will do xray to r/o any acute fracture. We will also do labs to r/o any leukocytosis or concern for possible gout. Will begin a short course of steroids to bring down inflammation. Further recommendations pending testing. He is to call with any worsening or unrelieved symptoms. Abdominal pain 10/04/2019 06/21/2020 Assessment & Plan (10/04/2019 2:59 PM CDT): Patient complains of lower abdominal pain in the inguinal area left and right sides.. He has had 7 surgeries in his lower abdomen poor inguinal hernia and complications it in a 5 and half years span none in the past 3 years he is complaining of lot of gaseous feeling in lower the abdominal pain discomfort however this is improved from 2 days ago.. No fever no chills no nausea no vomiting he is passing bowel mood is today without difficulty. The patient's same vitals a good lungs are clear no wheezing rhonchi abdomen soft no masses no panel med list splenomegaly normal bowel sounds some tenderness and left and right groin but no rebound tenderness. Pain level at this time is as 3 to 4/10. Bloating and gaseous some improving therefore pain is improving according to patient.. This time I gave more information on regarding of bloating taking from up-to-date today patient Education.. Patient given a progress report next several days he. Understands if he becomes worse she will need to go to the emergency room. Paronychia of left thumb 08/27/201904/2020 Assessment & Plan (08/27/2019 11:21 AM CDT): Patient presents with pain, mild erythema and warmth at the skin surrounding the left thumbnail, most suggestive of infection. We will treat with antibiotic which he is to complete as prescribed. He was encouraged to continue warm soaks and tylenol for pain. He is to call with any increasing pain, swelling, redness or fever. Understanding verbalized. Retroperitoneal bleeding 03/27/201904/2020 Overview (04/17/2019): Added automatically from request for surgery [id number] Chest tightness 01/07/2019 10/04/2019 Chest pain 01/07/2019 06/21/2020 Bilateral leg pain 09/12/2018 9 Assessment & Plan (09/12/2018 4:01 PM CDT): Patient seen on 07/26/2018 for persistent leg pain bilaterally. Patient describes intermittent claudication. Pretty certain he at the certain distance he is stop because of pain. Pain gradually increases to the point he can't tolerate edema. Pain resolved after rest. An LULA will be ordered.. Irritant contact dermatitis due to plants, except food 09/09/2018 06/21/2020 Assessment & Plan (09/09/2018 6:16 PM CDT): Patient is a rash of his chest consistent with contact dermatitis here to notice this occurring after cutting his grass. Patient has been using Benadryl but is making him too groggy. This point I recommend the utilize Calmoseptine ointment/cream and Xyzal as antihistamine 1 tablet daily on the Xyzal. Intermittent claudication 08/24/2018 Assessment & Plan (08/24/2018 7:01 PM CDT): Patient seen on since July 26, 2018 for bilateral leg pain his description is consistent with intermittent claudication.. Patient's referred for ultrasound LULA of his legs further recommendation regarding this. Bronchiectasis without acute exacerbation 08/18/2018 12/24/2018 Assessment & Plan (08/18/2018 1:26 PM CDT): HRCT on July 30, 2018 has shown: 1. Mild to moderate pulmonary emphysema with bilateral bronchiectasis greater than lower lobes, 2. No Pulmonary consolidation. Today the patient was started on a course of Augmentin. He was also started on Daliresp. Cough productive of yellow sputum 07/03/2018 12/24/2018 Assessment & Plan (07/03/2018 11:07 PM CDT): History and clinical examination are consistent with chronic bronchitis. Today the patient was started on a course of Augmentin 875 mg 1 tablet b.i.d.. Chest x-ray and Sputum culture for AFB and I aerobic organisms were ordered. Exertional shortness of breath 07/03/2018 01/08/2023 Assessment & Plan (08/17/2018 11:47 AM CDT): Possible causes: 1. Chronic bronchitis, 2. Postnasal drip, 3. Obesity/physical deconditioning. Today he was started on Spiriva Respimat. He was also advised to continue with albuterol inhaler 2 puffs as needed. needed. Assessment & Plan (07/03/2018 11:04 PM CDT): Etiology of exertional shortness of breath is most probably due to chronic bronchitis. The patient has 75 pack year smoking history. He quit in 1995. PFT and chest CT were ordered. The patient was advised to continue with albuterol inhaler 2 puffs as needed. Allergic rhinitis due to pollen 07/03/2018 09/02/2019 Assessment & Plan (08/18/2018 1:28 PM CDT): He has all clinical features of allergic rhinitis. He was advised to continue with combination of Flonase and cetirizine. Assessment & Plan (08/17/2018 11:44 AM CDT): He has all clinical features of allergic rhinitis. He was advised to continue with combination of Flonase and cetirizine. Assessment & Plan (07/03/2018 11:04 PM CDT): He has all clinical features of allergic rhinitis including chronic postnasal drip, nasal congestion and runny nose. Currently is on combination of cetirizine and fluticasone nasal spray. Acute non-recurrent maxillary sinusitis 03/19/2018 11/01/2020 Assessment & Plan (07/01/2020 12:12 PM CDT): Patient was seen a little over a week ago and began treatment for acute sinusitis. He however, continues to struggle with cough, congestion and post nasal discharge. Sinus pressure has improved. He has been using otc remedies as well. Given this patient retested for covid and rapid testing negative. He will be started on steroids to help with drying of secretions. If symptoms worsen or persist he is to call and refer to ENT. Assessment & Plan (06/21/2020 4:52 PM CDT): Patient is seen 1 week ago with postnasal drainage he is now having significant pain over frontal maxillary sinuses. Also complains of coughing up thick very yellow sputum.. Terminates read as swollen. Pain over frontal maxillary sinuses on palpating.. Patient has been on Mucinex for the past week plans at Augmentin 875 twice a day for 7 days to his therapy. Assessment & Plan (03/19/2018 12:56 PM DRAFTSPERSON): Patient has had pain over the maxillary and frontal sinuses pain is greatest over the maxillary sinuses . These symptoms have been present I have to 6 weeks at this time. Patient complains of a postnasal drainage is worse in the morning clears up as the day goes on his nose sneezing itchy eyes rhinitis some coughing which is productive. Coughing is very minimal [id number] medications have not helped him. Head congestion 02/02/2018 11/01/2020 Assessment & Plan (06/07/2020 6:02 PM CDT): Sore throat head congestion patient which urgent cares facility [facility] located in [facility] his strep test and COVID test was negative. Patient is on Zyrtec he has been on for years also utilizes Flonase.. Been symptomatic approximately 2 weeks not improving. Patient is not toxic in appearance it ears eyes nose and throat grossly normal.. Advised patient is discontinue Zyrtec temporarily start Mucinex he begin liquify these thick secretions that he is feeling going down his throat aggravating his throat give him pain. For the treatment changes at this time Assessment & Plan (02/02/2018 1:12 PM DRAFTSPERSON): Patient has had head congestion for 2 days is a postnasal drainage is causing him to not be able to sleep is constantly coughing is bringing up yellow sputum is no fever no chills no night sweats he does not hurting anywhere.. His exam is unremarkable nasal target turbinates slightly swollen clear mucus is present. Is no fever no chills night sweats a generalized achiness. Assessment URI with some coughing plans Tessalon Perles 100 mg b.i.d. total of 12. No further recommendations he can continue Mucinex. Patient will be going out of town Sunday to [place] he is concerned about developing other problems related to this. Tinea cruris 10/23/2017 06/21/2020 Assessment & Plan (10/24/2017 5:57 PM CDT): Patient is symptomatic for less than 2 weeks. He is using [id number]-[id number] Lamisil which is helped him.. 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 With increased sweating contributes to the disease process recommend he use antifungal powder during the day due absorb some of the sweating . Patient given patient information hand she regarding the his diagnosis. Ear pressure, unspecified laterality 05/21/2017 12/24/2018 Assessment & Plan (05/21/2017 1:33 PM CDT): Patient complains of pressure around the right ear and posterior and anterior in in the ear. Questionable hearing decreased. No significant headache low bit of nasal blockage nothing else really going on. No vision changes no facial asymmetry no problems chewing. Examination is totally benign. Patient may benefit from nasal spray and Zyrtec for possible barotitis. Dizzy spells 01/17/2017 02/28/2017 Assessment & Plan (01/17/2017 11:35 AM DRAFTSPERSON): Patient's estimate dizziness/positional vertigo. Which appears to have resolved not is less active involved with moving much bending and twisting and and changing positions. Patient will be involved with this in the next few days advised him try Antivert see what resumes relieve his symptoms Bilateral hand pain 08/31/2016 06/22/19 21 Assessment & Plan (01/17/2017 11:36 AM DRAFTSPERSON): On last visit patient having bilateral hand pain this is now resolved. Assessment & Plan (08/31/2016 5:13 PM CDT): Patient will get a sed rate, Uric acid, and LIDIA reflex quantitative screening. He will also get bilateral hand x-rays. Ibuprofen was placed on Hold, we will start meloxicam 15 milligrams per day every day for the next month. Progress report in about a week. Abdominal pain, chronic, right lower quadrant 09/01/19 17 09/02/2019 Assessment & Plan (08/31/2016 5:14 PM CDT): Patient's maintain on a gabapentin 300 milligrams twice a day. This is effective in controlling his abdominal pain. Had multiple abdominal surgeries with complications. Acute nasopharyngitis 07/26/20162019 Immunizations Name Administration Dates Next Due COVID-19 mRNA (Hyperic) 0.3 m L (30 mcg) vaccine (12 years and up) 11/25/2022 Influenza, Quad, Adjuvantated, Intramuscular 08/2022,01/22/2021 Influenza, Quadrivalent, Hig h Dose, Preservative Free, Intrr 11/22/2021,11/27/2019 Influenza, Trivalent, High D ose, Split, Preservative Free, Intramuscular 12/08/2023,10/16/2018 Influenza, Unspecified 11/23/2021,01/20/2021 Pneumococcal Conjugate PCV 13 10/16/2018 Pneumococcal Polysaccharide PPV23 11/27/2019 RSV Vaccine, Pref, Recombina nt, Subunit, Adjuvanted, PF, IM (Arexvy) 12/08/2023 TD Preservative Free 11/21/2023 Tdap 10/16/2018 ZOSTER Recombinant 07/23/2023,01/20/2023 Social History Tobacco Use Types Packs/Day Years Used Date Smoking Tobacco: Former Cigarettes 2.5 30 1 966 - 1996 Smokeless Tobacco: Never Tobacco Cessation:Counseling Given: Not Answered Alcohol Use Standard Drinks/Week Comments No 0 (1 standard drink = 0.6 oz pur e alcohol) PHQ-2 Answer Date Recorded PHQ-2 Total Score (If total score is 3 or more points, staff should administer the PHQ-9) 0 01/10/2024 Personal Safety Answer Date Recorded Have you ever been in or are you currently in a harmful physical or emotional relationship or is someone making you feel afraid or unsafe? 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 Not on file Not on file Not on file Last Filed Vital Signs Vital Sign Reading Time Taken Comments Blood Pressure 160/77 02/26/2024 8:32 AM DRAFTSPERSON Pulse 54 02/26/2024 8:32 AM DRAFTSPERSON Temperature 36.8 C (98.2 F) 01/10/2024 10:10 AM DRAFTSPERSON Respiratory Rate 18 02/26/2024 8:32 AM DRAFTSPERSON Oxygen Saturation 99% 01/10/2024 10:10 AM DRAFTSPERSON Inhaled Oxygen Concentration - - Weight 90.7 kg (200 lb) 02/26/2024 8:32 AM DRAFTSPERSON Height 175.3 cm (5' 9 ) 02/26/2024 8:32 AM DRAFTSPERSON Body Mass Index 29.53 02/26/2024 8:32 AM DRAFTSPERSON Plan of Treatment Not on file Medical Devices Implanted Type Area Cryptologic Technician Technical Device Identifier Shelf Expiration Date Model / Serial / Lot [employer] Angio-Seal Vip 6fr Closere Device [id number] - [id number] Implanted:Qty: 1 on 03/06/2023 by Temo Ureña MD at [facility] Other - see comments [employer] Juliano 08/08/2023 [id number] / / [id number] [employer] [id number] Zilver Ptx 6mm 120mm 125cm Drug Elute Otw Delivery System - [id number] Implanted:Qty: 1 on 10/10/2018 by Temo Ureña MD at [facility] Stent [employer] 12/08/2019 [id number] / / [id number] [facility] [id number] Cordis Smart Control 9mm 40mm 80cm Delivery Handle Self Expand Latex Free - [id number] Implanted:Qty: 1 on 10/10/2018 by Temo Ureña MD at [facility] Stent [facility] 04/19/2019 [id number] / / [id number] [facility] [id number] Cordis Smart Control 8mm 40mm 120cm Delivery Handle Self Expand Latex Free - [id number] Implanted:Qty: 1 on 10/10/2018 by Temo Ureña MD at [facility] Stent [facility] 02/18/2019 [id number] / / [id number] [employer] [id number] Zilver Ptx 6mm 120mm 125cm Drug Elute Otw Delivery System - [id number] Implanted:Qty: 1 on 01/22/2019 by Temo Ureña MD at [facility] Stent [employer] 05/10/2020 [id number] / / [id number] [employer] [id number] Zilver Ptx 6mm 60mm 125cm Drug Elute Otw Delivery System - [id number] Implanted:Qty: 1 on 01/22/2019 by Temo Ureña MD at [facility] Stent [employer] 05/10/2020 [id number] / / [id number] [employer] Jul[employer] Erica 6mm 120mm 130cm Drug Elute Delivery System Stent Vascular [id number] - [id number] Implanted:Qty: 1 on 03/06/2023 by Temo Ureña MD at [facility] Stent [employer] 08/26/2023 [id number] / / [id number] [employer] Jul[employer] Erica 6mm 120mm 130cm Drug Elute Delivery System Stent Vascular [id number] - [id number] Implanted:Qty: 1 on 03/06/2023 by Temo Ureña MD at [facility] Stent [employer] Jul[employer] 08/26/2023 [id number] / / [id number] [employer] [id number] Angio-Seal Evolution 6fr .035in Guidewire Bypass Tube Suture - [id number] Implanted:Qty: 1 on 10/10/2018 by Temo Ureña MD at [facility] [employer] 07/20/2019 [id number] / / [id number] [employer] [id number] Angio-Seal Evolution 6fr .035in Guidewire Bypass Tube Suture - [id number] Implanted:Qty: 1 on 01/22/2019 by Temo Ureña MD at [facility] [employer]ig [employer] 09/19/2019 [id number] / / [id number] [employer] [id number] Stent Tpr 3.25mm .034-.029in 5fr 33mm Cor Everolimus Elut - [id number] Implanted:Qty: 1 on 04/17/2019 by Temo Ureña MD at [facility] 03/04/2020 [id number] [employer] [id number] Stent Tpr 3.25mm .034-.029in 5fr 12mm Cor Everolimus Elut - [id number] Implanted:Qty: 1 on 04/17/2019 by Temo Ureña MD at [facility] 04/12/2020 [id number] [employer] [id number] System Coronary Stent Xience Kortney Everolimus L18 Mm Od4 Mm Rapid Exchange - [id number] Implanted:Qty: 1 on 04/17/2019 by Temo Ureña MD at [facility] 12/04/2019 [id number] [employer] [id number] Angio-Seal Evolution 6fr .035in Guidewire Bypass Tube Suture - [id number] Implanted:Qty: 1 on 04/17/2019 by Temo Ureña MD at [facility] 10/20/2019 [id number] / / [id number] [facility] [id number] Angio-Seal Evolution 6fr .035in Guidewire Bypass Tube Suture - [id number] Implanted:Qty: 1 on 04/17/2019 by Temo Ureña MD at [facility] [id number] / / Procedures Procedure Name Priority Date/Time Associated Diagnosis Comments US LULA Schedule Routine, Read Routine (OP Routine) 02/11/2024 1:18 PM DRAFTSPERSON Atherosclerosis of [place]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, bilateral legs (HCC) VL US ARTERIAL DUPLEX LOWER EXTREMITY BILATERAL Schedule Routine, Read Routine (OP Routine) 02/04/2024 10:48 AM DRAFTSPERSON Atherosclerosis of [place]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, bilateral legs (HCC) Atherosclerosis of [place]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, right leg (HCC) HOLTER MONITOR 48 HR Routine 02/04/2024 7:22 AM DRAFTSPERSON PVC (premature ventricular contraction) CT CHEST ABDOMEN PELVIS W CONTRAST ED 09/01/2023 7:49 AM CDT COLONOSCOPY 12/21/2021 11:15 AM CDT HEPATITIS C ANTIBODY Routine 05/26/2016 8:35 AM CDT from Last 3 Months or Most Recently Relevant to Health Maintenance Results * US LULA (02/11/2024 1:18 PM DRAFTSPERSON) Anatomical Region Laterality Modality Vascular N/A Ultrasound 02/11/2024 12:5 6 PM DRAFTSPERSON Narrative 02/11/2024 4:04 PM DRAFTSPERSON [address] [place] [address] Ankle Brachial Index Report Patient Name: COMPA TORRES : 1945 (78y 5m) Gender: M Study Date: 02/11/2024 12:56:00 PM Stock Selector: Order Provider: TEMO UREÑA Quality: Adequate Ref Provider: TEMO UREÑA PROCEDURES: Arterial Report: A bilateral extremities ankle/brachial index was performed. INDICATIONS: I70.213 Atherosclerosis of [place]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, bilateral legs. CONCLUSIONS: 1. Arterial insufficiency at rest in the right lower extremity with ankle- brachial index 0.95. This is essentially unchanged from prior study in June 2023. triphasic waveform at the ankle. 2. Moderate arterial insufficiency at rest in the left lower extremity with an ankle-brachial index of 0.58. This represents a significant decline when compared to prior value of 0.93 in June 2023. Biphasic waveform at the ankle. FINDINGS: Electronically Signed By: Temo Ureña MD 02/11/2024 4:03:44 PM DRAFTSPERSON Procedure Note Temo Ureña MD - 02/11/[address] [address] Ankle Brachial Index Report Patient Name: COMPA TORRES : 1945 (78y 5m) Gender: M Study Date: 02/11/2024 12:56:00 PM Stock Selector: Order Provider: TEMO UREÑA Quality: Adequate Ref Provider: TEMO UREÑA PROCEDURES: Arterial Report: A bilateral extremities ankle/brachial index wasperformed. INDICATIONS: I70.213 Atherosclerosis of [place] arteries of extremities withintermittent claudication, bilateral legs. CONCLUSIONS: 1. Arterial insufficiency at rest in the right lower extremity withankle- brachial index 0.95. This is essentially unchanged from prior study in June 2023.triphasic waveform at the ankle. 2. Moderate arterial insufficiency at rest in the left lower extremitywith an ankle-brachial index of 0.58. This represents a significant decline whencompared to prior value of 0.93 in June 2023. Biphasic waveform at the ankle. FINDINGS: Electronically Signed By: Temo Ureña MD 02/11/2024 4:03:44 PM DRAFTSPERSON us Temo Ureña MD IMG US PROCEDURES Final Result * US Arterial Duplex Lower Extremity Bilateral (02/04/2024 10:48 AM DRAFTSPERSON) Anatomical Region Laterality Modality Vascular Bilateral Ultrasound 02/05/2024 5:29 AM DRAFTSPERSON Narrative 02/05/2024 5:34 AM DRAFTSPERSON EXAM DESCRIPTION: VL US ARTERIAL DUPLEX LOWER EXTREMITY BILATERAL REASON FOR STUDY: Atherosclerosis of [place] Arteries of Extremities with Intermittent Claudication, Right Leg, RLE TECHNIQUE: 2D morphologic, color and duplex Doppler interrogation bilateral lower extremity arterial systems. COMPARISON: 07/06/2023 LULA study measuring 1.03 on the right and 0.93 on the left. FINDINGS: Right leg: The right common femoral artery demonstrates a peak systolic velocity of 205.7 cm per 2nd with a biphasic waveform and mild turbulence suggesting inflow stenosis from the aortoiliac system. The right superficial femoral artery demonstrates a decreased velocity of 87.6 cm% with increasing turbulence of slightly dampened biphasic pattern suggesting underlying moderate proximal SFA stenosis. The mid and distal SFA maintains velocity and waveform without additional evidence of high-grade stenosis or occlusion through the popliteal. The right popliteal is patent with dampened flow noted in the posterior tibial, peroneal arteries. Biphasic flow maintained in the anterior tibial. Left leg: The left common femoral artery demonstrates a peak systolic velocity of 156 cm per 2nd with biphasic pattern suggesting inflow stenosis from the aortoiliac system. The left superficial femoral artery demonstrates degradation to a monophasic delayed waveform suggesting high-grade stenosis in the proximal SFA. This continues through the mid and distal SFA as well as the proximal popliteal artery without additional high-grade stenosis or occlusion. The distal posterior tibial demonstrates no flow. The posterior tibial, peroneal and anterior tibial arteries are patent with markedly dampened flow. IMPRESSION: Right leg demonstrates inflow stenosis from the aortoiliac system and moderate proximal SFA stenosis. Left leg demonstrates inflow stenosis from the aortoiliac system with high-grade stenosis in the proximal SFA. Additional distal popliteal occlusion. Consider CT or MR arteriogram to better define THIS IS AN ELECTRONICALLY VERIFIED FINAL REPORT 02/05/2024 5:34 AM - Electronically signed by Kwan Rodrigues M.D. RB: BRYAN Report ID: [id number] Reading Location: [place] [address] Procedure Note Kwan Rodrigues MD - 02/05/2024 EXAM DESCRIPTION: US ARTERIAL DUPLEX LOWER EXTREMITY BILATERAL REASON FOR STUDY: Atherosclerosis of [place] Arteries of Extremities with Intermittent Claudication, Right Leg, RLE TECHNIQUE: 2D morphologic, color and duplex Doppler interrogationbilateral lower extremity arterial systems. COMPARISON: 07/06/2023 LULA study measuring 1.03 on the right and 0.93 onthe left. FINDINGS: Right leg: The right common femoral artery demonstrates a peak systolic velocity of205.7 cm per 2nd with a biphasic waveform and mild turbulence suggesting inflow stenosis from the aortoiliac system. The right superficial femoral artery demonstrates a decreased velocity of87.6 cm% with increasing turbulence of slightly dampened biphasic pattern suggesting underlying moderate proximal SFA stenosis. The mid and distalSFA maintains velocity and waveform without additional evidence of high-grade stenosis or occlusion through the popliteal. The right popliteal ispatent with dampened flow noted in the posterior tibial, peroneal arteries.Biphasic flow maintained in the anterior tibial. Left leg: The left common femoral artery demonstrates a peak systolic velocity of156 cm per 2nd with biphasic pattern suggesting inflow stenosis from theaortoiliac system. The left superficial femoral artery demonstrates degradation to amonophasic delayed waveform suggesting high-grade stenosis in the proximal SFA. This continues through the mid and distal SFA as well as the proximal popliteal artery without additional high-grade stenosis or occlusion. The distal posterior tibial demonstrates no flow. The posterior tibial, peroneal and anterior tibial arteries are patent with markedly dampened flow. IMPRESSION: Right leg demonstrates inflow stenosis from the aortoiliac system and moderate proximal SFA stenosis. Left leg demonstrates inflow stenosis from the aortoiliac system with high-grade stenosis in the proximal SFA. Additional distal popliteal occlusion. Consider CT or MR arteriogram to better define THIS IS AN ELECTRONICALLY VERIFIED FINAL REPORT 02/05/2024 5:34 AM - Electronically signed by Kwan Rodrigues M.D. RB: BRYAN Report ID: [id number] Reading Location: [place] [address] us Temo Ureña MD [facility] US PROCEDURES Final Result * 48 HR Holter Monitor (02/04/2024 7:22 AM DRAFTSPERSON) Anatomical Region Laterality Modality Electrocardiogra phy 02/04/2024 8:30 AM DRAFTSPERSON Narrative 02/11/2024 11:04 AM DRAFTSPERSON [address] [address] HOLTER MONITOR Patient Name: COMPA TORRES CHARLES : 1945 Study Date: 02/04/2024 8:30:00 AM Gender: M Tech: Ref Provider: TEMO UREÑA Height(Cm): BSA: Weight(Kg): Order Provider: TEMO UREÑA - PROCEDURES: Holter Report: Holter Monitor Report. INDICATIONS: I49.3 Ventricular premature depolarization. FINDINGS: Protocol: Recording Duration (Ordered): [id number] Number of Diary entries 2024-02-04 08:30:00 CONCLUSIONS: 1. Predominant rhythm is normal sinus rhythm with a minimum heart rate of 42 beats per minute in sinus and a maximum heart rate of 82 beats per minute also in sinus. Average heart rate of 56 beats per minute. Total monitoring time of 48 hours. 2. Heart rate and rate variability is appropriate. 3. No prolonged pauses. 4. Rare PACs with 154 PACs corresponding to less than 1% of total beats. There were 2 asymptomatic supraventricular couplets. There was a short run of asymptomatic supraventricular trigeminy. 5. Rare PVCs with 331 PVCs corresponding to less than 1% of total beats. 6. There was only 1 patient activated event associated with chest pain/pressure. It was in sinus bradycardia at 55 beats per minute with no significant findings. Electronically Signed By: Dr Kwan Beasley 02/11/2024 11:04:46 AM DRAFTSPERSON Procedure Note wKan Beasley MD - 02/11/[address] [address] HOLTER MONITOR Patient Name: COMPA TORRES CHARLES : 1945 Study Date: 02/04/2024 8:30:00 AM Gender: M Tech: Ref Provider: TEMO UREÑA Height(Cm): BSA: Weight(Kg): Order Provider: TEMO UREÑA - PROCEDURES: Holter Report: Holter Monitor Report. INDICATIONS: I49.3 Ventricular premature depolarization. FINDINGS: Protocol: Recording Duration (Ordered): [id number] Number of Diary entries 2024-02-04 08:30:00 CONCLUSIONS: 1. Predominant rhythm is normal sinus rhythm with a minimum heart rate of42 beats per minute in sinus and a maximum heart rate of 82 beats per minute also insinus. Average heart rate of 56 beats per minute. Total monitoring time of 48 hours. 2. Heart rate and rate variability is appropriate. 3. No prolonged pauses. 4. Rare PACs with 154 PACs corresponding to less than 1% of total beats. There were 2 asymptomatic supraventricular couplets. There was a short run of asymptomatic supraventricular trigeminy. 5. Rare PVCs with 331 PVCs corresponding to less than 1% of total beats. 6. There was only 1 patient activated event associated with chestpain/pressure. It was in sinus bradycardia at 55 beats per minute with no significantfindings. Electronically Signed By: Dr Kwan Beasley 02/11/2024 11:04:46 AM DRAFTSPERSON us Temo Ureña MD [facility] PROCEDURES Final Result * CT Chest Abdomen Pelvis W Contrast (09/01/2023 7:49 AM CDT) Anatomical Region Laterality Modality Body N/A Computed Tomogra phy 09/01/2023 8:00 AM CDT Narrative 09/01/2023 8:13 AM CDT EXAM DESCRIPTION: CT CHEST ABDOMEN PELVIS W CONTRAST REASON FOR STUDY: fall Recent fall, right side mid back pain that radiates to abdomen, and large bruise on right side of back, difficulty taking a deep breath, on blood thinners Hx of cardiac stents, HTN, and hernia repair Former smoker TECHNIQUE: CT scan of the chest, abdomen, and pelvis performed with intravenous and without oral contrast using helical scanning technique with dynamic intravenous contrast injection. Reconstructed coronal and sagittal MPR images reviewed. All images stored on PACS. Automated exposure control was used as a dose optimization technique for this examination. CONTRAST TYPE/DOSE: 75mL of IOVERSOL 350 MG IODINE/ML INTRAVENOUS SYRINGE injected via intravenous COMPARISON: CTA abdominal aorta 03/02/2023, CT abdomen and pelvis 04/17/2019, CT chest 07/30/2018 FINDINGS: CHEST HEART: Heart size is normal with no pericardial effusion. There are coronary artery calcifications. MEDIASTINUM/ALY: No identified masses or abnormal nodes. No thoracic aortic aneurysm or dissection. LUNGS/PLEURA: There is centrilobular and paraseptal pulmonary emphysema. No pulmonary contusion or focal airspace consolidation. No effusion. No pneumothorax. AXILLA/CHEST WALL: No adenopathy or mass. MUSCULOSKELETAL: Subtle right posterior 10th rib fracture. No segmental rib fracture. OTHER: No other significant abnormality. ABDOMEN/PELVIS LIVER: Normal. GALLBLADDER: Normal. SPLEEN: Normal. PANCREAS: Normal. ADRENALS: Normal. KIDNEYS/URINARY TRACT: Normal appearance of the kidneys. No hydronephrosis. Water density right renal cyst. GI: No bowel obstruction. Colonic diverticula without acute diverticulitis. PERITONEUM: No hemoperitoneum or free intraperitoneal air. No abdominal ascites. REPRODUCTIVE: Normal. VASCULATURE: Dense vascular calcifications. Infrarenal abdominal aortic ectasia measuring 2.9 cm (axial image 147). MUSCULOSKELETAL: No acute finding. OTHER: No other significant abnormality. IMPRESSION: Right posterior 10th rib fracture. No acute findings in the abdomen and pelvis. Pulmonary emphysema. Additional findings as above. THIS IS AN ELECTRONICALLY VERIFIED FINAL REPORT 09/01/2023 8:13 AM - Electronically signed by Meño Evans M.D. JR: Report ID: [id number] Reading Location: [id number] Procedure Note Meño Evans MD - 09/01/2023 EXAM DESCRIPTION: CT CHEST ABDOMEN PELVIS W CONTRAST REASON FOR STUDY: fall Recent fall, right side mid back pain that radiates to abdomen, and large bruise on right side of back, difficulty taking a deep breath, on blood thinners Hx of cardiac stents, HTN, and hernia repair Former smoker TECHNIQUE: CT scan of the chest, abdomen, and pelvis performed with intravenous and without oral contrast using helical scanning techniquewith dynamic intravenous contrast injection. Reconstructed coronal and sagittalMPR images reviewed. All images stored on PACS. Automated exposure control was used as a dose optimization technique for this examination. CONTRAST TYPE/DOSE: 75mL of IOVERSOL 350 MG IODINE/ML INTRAVENOUS SYRINGE injected via intravenous COMPARISON: CTA abdominal aorta 03/02/2023, CT abdomen and [id number]/17/2019, CT chest 07/30/2018 FINDINGS: CHEST HEART: Heart size is normal with no pericardial effusion. There are coronary artery calcifications. MEDIASTINUM/ALY: No identified masses or abnormal nodes. No thoracic aortic aneurysm or dissection. LUNGS/PLEURA: There is centrilobular and paraseptal pulmonary emphysema.No pulmonary contusion or focal airspace consolidation. No effusion. No pneumothorax. AXILLA/CHEST WALL: No adenopathy or mass. MUSCULOSKELETAL: Subtle right posterior 10th rib fracture. No segmentalrib fracture. OTHER: No other significant abnormality. ABDOMEN/PELVIS LIVER: Normal. GALLBLADDER: Normal. SPLEEN: Normal. PANCREAS: Normal. ADRENALS: Normal. KIDNEYS/URINARY TRACT: Normal appearance of the kidneys. Nohydronephrosis. Water density right renal cyst. GI: No bowel obstruction. Colonic diverticula without acute diverticulitis. PERITONEUM: No hemoperitoneum or free intraperitoneal air. No abdominal ascites. REPRODUCTIVE: Normal. VASCULATURE: Dense vascular calcifications. Infrarenal abdominal aortic ectasia measuring 2.9 cm (axial image 147). MUSCULOSKELETAL: No acute finding. OTHER: No other significant abnormality. IMPRESSION: Right posterior 10th rib fracture. No acute findings in the abdomen and pelvis. Pulmonary emphysema. Additional findings as above. THIS IS AN ELECTRONICALLY VERIFIED FINAL REPORT 09/01/2023 8:13 AM - Electronically signed by Meño Evans M.D. JR: Report ID: [id number] Reading Location: [place] [address] Tiffany Larson MD [facility] CT PROCEDURES F inal Result * COLONOSCOPY (12/21/2021 11:15 AM CDT) Anatomical Region Laterality Modality Other Narrative Procedure Note Lou Barone MD - 12/21/2021 11:15 AM CDT [facility] Patient Name: Compa Torres Procedure Date: 12/21/2021 11:15 AM Date of : 1945 Admit Type: Outpatient Age: 76 Gender: Male Attending MD: Lou Barone M.D. Room: [facility] ENDOSCOPY ROOM 1 Note Status: Finalized Patient Profile: This is a 76 year old male. No family history ofcolon cancer. Noted positive Cologuard test Procedure: Colonoscopy Indications: Screening for colorectal malignant neoplasm, Last colonoscopy 10 years ago Referring MD: Fredy Malagon M.D. Providers: Lou Barone M.D. Impression: - One 3 mm polyp in the ascending colon, removedwith a jumbo cold forceps. Resected and retrieved. - One 3 mm polyp in the descending colon, removedwith a jumbo cold forceps. Resected and retrieved. - Diverticulosis in the sigmoid colon. - Internal hemorrhoids. Recommendation: - Await pathology results. - Repeat colonoscopy in 4 years for screeningpurposes. - Continue present medications. Medicines: Monitored Anesthesia Care Complications: No immediate complications. Estimated Blood Loss: Estimated blood loss: none. Procedure: Pre-Anesthesia Assessment: - Prior to the procedure, a History and Physicalwas performed, and patient medications and allergieswere reviewed. The patient's tolerance of previous anesthesia was also reviewed. The risks andbenefits of the procedure and the sedation options and risks were discussed with the patient. All questions were answered, and informed consent was obtained. Prior Anticoagulants: The patient has taken noanticoagulant or antiplatelet agents. ASA Grade Assessment: III -A patient with severe systemic disease. Afterreviewing the risks and benefits, the patient was deemed in satisfactory condition to undergo the procedure. The benefits, risks and alternatives of theprocedure and sedation were discussed and informed consentwas obtained. All questions were answered. Please referto the signed informed consent document in the medical record. The bowel preparation used was Miralax and bisacodyl tablets via split dose instruction. The scope was passed under direct vision. The Pediatric Colonoscope PCF-H190L [id number] was introducedthrough the anus and advanced to the the cecum, identifiedby appendiceal orifice and ileocecal valve. Thequality of the bowel preparation was good. Bowel prep was administered using a split dose. Findings: The perianal and digital rectal examinations were normal. The cecum appeared normal. The transverse colon appeared normal. A 3 mm polyp was found in the ascending colon. The polyp was sessile. The polyp was removed with a jumbo cold forceps. Resection andretrieval were complete. A 3 mm polyp was found in the descending colon. The polyp wassessile. The polyp was removed with a jumbo cold forceps. Resection andretrieval were complete. Many medium-mouthed diverticula were found in the sigmoid colon. Internal hemorrhoids were found during retroflexion. The hemorrhoids were medium-sized. Electronically signed by Lou Barone M.D. Lou Barone M.D. 12/21/2021 2:00:44 PM Number of Addenda: 0 Note Initiated On: 12/21/2021 11:15 AM Procedure Code(s): --- Professional --- 17761, Colonoscopy, flexible; with biopsy, single or multiple Diagnosis Code(s): --- Professional --- Z12.11, Encounter for screening for malignant neoplasm of colon K64.8, Other hemorrhoids D12.2, Benign neoplasm of ascending colon D12.4, Benign neoplasm of descending colon K57.30, Diverticulosis of large intestine without perforation orabscess without bleeding CPT copyright 2020 [employer]. All rights reserved. The codes documented in this report are preliminary and upon educational advisor reviewmay be revised to meet current compliance requirements. Recognized by the [employer] for promoting quality in endoscopy Lou Barone MD ENDOSCOPY PROCEDURES Final Result * Hepatitis C antibody (05/26/2016 8:35 AM CDT) Hep C Ab Negative Negative JORGE GORGE Blood specimen (specimen) 05/26/2016 8:35 AM CDT 05/26/2016 6:56 PM CDT Fredy Malagon MD LAB MICROBIOLOGY - GENERAL ORDERABLES Edited Result - Final JORGE [id number] [facility] Department [place] [address] from Last 3 Months or Most Recently Relevant to Health Maintenance Insurance MEDICARE [facility] Address: [address] [address] [place] [address] [employer] MEDICARE [facility] MEDICARE Advance Directives For more information, please contact: [phone] * Full Code (Latest Code Status on File) Date Activated Date Inactivated Comments 06/29/2023 11:54 AM 06/29/2023 6:07 PM * Full Code Date Activated Date Inactivated Comments 03/06/2023 3:26 PM 03/06/2023 11:58 PM * Full Code Date Activated Date Inactivated Comments 12/21/2021 11:45 AM 12/21/2021 6:49 PM * Full Code Date Activated Date Inactivated Comments 12/21/2021 11:45 AM 12/21/2021 11:45 AM * Full Code Date Activated Date Inactivated Comments 08/19/2020 10:03 AM 08/19/2020 6:00 PM Care Teams Soils Technician Relationship Specialty Start Date End Date Fredy Malagon MD PCP - General 05/26/16 Trav Molina MD Consulting Physician Pulmonary Disease 09/27/18 Temo Ureña MD Consulting Physician Cardiology 10/10/18
--- OUTSIDE RECORDS SUMMARY | 2024-03-31 11:39 | XMS_ITS | CCD ---
Author Name Interface, [id number] [facility] [place] [address] [facility] [place] [address] Care Team Providers Care Model And Dye Person Name Role Phone Marzena Khan Unavailable Unavailable Reason for Visit Functional Status Medications Problems Social History
--- OUTSIDE RECORDS SUMMARY | 2024-03-31 11:39 | XMS_ITS | Clinical Summary ---
Author Organization [facility] Address [address] [place] [id number] Care Team Providers Care Sweatband Drummer Name Role Phone Fredy Malagon MD Primary Care Provider [phone] Trav Molina MD Unavailable Temo Ureña MD Unavailable [phone] Allergies Active Allergy Reactions Criticality Noted Date [...] total) by mouth daily 30 tablet 11 06/29/19 24 025 Active HYDROcodone-oleg taminophen (NORCO) [...] episode nonsustained V-tach found on thirty day cardiac nurse monitor. Claudication 03/06/2023 Anxiety 02/22/2023 Assessment & Plan (01/11/2024 1:14 PM LOAD TESTER): Anxiety stable at this time no longer on Lexapro or BuSpar Assessment & Plan (02/23/2023 5:03 PM LOAD TESTER): Patient has noticed increased anxiety expressed in [...] 01/08/2023 Assessment & Plan (01/08/2023 5:33 PM LOAD TESTER): Patient is a right side of his scalp frontal region very suggestive of basal cell carcinoma. He previously had a basal cell carcinoma earlier this year was successfully removed patient is referred back to [facility] plastic surgery where he previously had surgery. 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 Looking at has a small create of formation consistent with basal cell carcinoma.. Refer to plastic surgery appointment for 05/15/[address] Kiet Lancaster with [facility] group has been made. History of exudative age-related [...] 09/30/2019 Assessment & Plan (01/11/2024 1:11 PM LOAD TESTER): Patient advised me he is comfortable with [...] deficit Assessment & Plan (01/24/2021 5:40 PM LOAD TESTER): Patient is having a flare for back [...] some point in the future. Atherosclerosis of [place] co ronary artery of [place] heart with angina pectoris ([facility]) 03/07/2019 Carotid stenosis, bilateral 03/07/2019 Atherosclerosis of [place] artery of both lower e xtremities 01/10/2019 Overview (01/10/2019): Added automatically from request for surgery [id number] Assessment & Plan (12/20/2021 5:36 PM CDT): PATIENT CONTINUES SEE CARDIOLOGY YEARLY SO HAS PA D IS STABLE AT THIS TIME Hyperlipidemia 01/07/2019 Assessment & Plan (01/11/2024 1:17 PM LOAD TESTER): Patient is maintained on atorvastatin 80 mg [...] ratio 4 Legend: (L) Low Atherosclerosis of [place] of both lower extremities with intermittent claudication 10/02/2018 Overview (10/02/2018): Added automatically from request for surgery [id number] Assessment & Plan (12/24/2018 6:23 PM LOAD TESTER): Patient has successful stent placed in the left lower extremity October 12, 2018. Patient is less symptomatic as result.. Still being observed for problem with the right lower extremities as well as carotid ultrasounds have been completed. He is under care of Cardiology . Thyroid nodule 08/18/2018 Assessment & Plan (01/11/2024 1:11 PM LOAD TESTER): Date on thyroid nodule has been ordered by his system operator this is scheduled for next week Assessment & Plan (12/24/2018 6:25 PM LOAD TESTER): Patient's a sonogram schedule for February 2019. [...] PFTS. 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 Her medication Acapella this is according to the doll repairer notes Assessment & Plan (08/24/2018 6:58 PM CDT): Patient was seen by doll repairer Dr. Cárdenas made a diagnosis of emphysema [...] At this time refer this patient on doll repairer hopefully at [facility]. Patient is taking the medication Treligy . [...] pulmonology. Assessment & Plan (04/15/2018 11:57 AM LOAD TESTER): Patient's cough is changed to dry cough [...] STATUS. Assessment & Plan (04/04/2018 2:47 PM LOAD TESTER): Patient's now the advised me that he [...] pressure. Assessment & Plan (03/26/2018 10:56 AM LOAD TESTER): Patient has a consistent productive cough since [...] time. Assessment & Plan (02/28/2017 4:20 PM LOAD TESTER): Osteoarthritis occasional joint pains Naprosyn works very well for minutes tolerated does not increased abdominal pain. Chronic rhinitis 02/28/2017 Assessment & Plan (02/28/2017 4:20 PM LOAD TESTER): Patient utilizing Flonase effective in helping with this chronic rhinitis Medicare annual wellness visit, subsequent 02/26 Assessment & Plan (01/11/2024 12:57 PM LOAD TESTER): History and physical completed patient's health risk assessment health maintenance reviewed and addressed. Patient's feels well he does not identify any new health problems since his last annual exam. He continues to follow-up with cardiology. Assessment & Plan (01/08/2023 5:31 PM LOAD TESTER): History and physical completed patient's health risk [...] Cologuard Assessment & Plan (12/24/2018 6:27 PM LOAD TESTER): Patient's history and physical completed health risk assessment health maintenance reviewed. Immunization discussed in deficiency is addressed.. Please see assessment and plans on going chronic health problems Assessment & Plan (02/28/2017 4:17 PM LOAD TESTER): History and physical completed patient is very [...] 02/26/2017 Assessment & Plan (02/28/2017 4:16 PM LOAD TESTER): Patient is symptomatic for last 6-12 months. Viagra prescribed his insurance will pay for 8 tablets per month. Side effects of medications discussed. Essential hypertension 08/31/2016 Assessment & Plan (01/11/2024 1:13 PM LOAD TESTER): Blood pressure 142/60 predominant blood pressure this [...] pressure Assessment & Plan (01/08/2023 5:32 PM LOAD TESTER): Pressure well controlled patient is tolerating medications Assessment & Plan (07/08/2022 3:17 PM CDT): Blood pressure remains well controlled patient is tolerating medications no change in therapy Assessment & Plan (04/20/2022 2:07 PM LOAD TESTER): Blood pressure remains well controlled no change [...] therapy Assessment & Plan (12/24/2018 6:23 PM LOAD TESTER): Blood pressure is very well control no change in therapy patient is tolerating medications Assessment & Plan (08/24/2018 7:01 PM CDT): Hypertension remains well control no change in therapy see him back in the next several months regarding his hypertension management. Patient is tolerating medications. Assessment & Plan (04/15/2018 12:03 PM LOAD TESTER): Hypertension is well controlled at this time. [...] him. Assessment & Plan (01/17/2017 11:38 AM LOAD TESTER): Hypertension is unchanged. Continue current treatment regimen. Dietary sodium restriction. Regular aerobic exercise. Continue current medications. Blood pressure will be reassessed at the next regular appointment. Assessment & Plan (08/31/2016 5:16 PM CDT): Hypertension is unchanged. Continue current treatment regimen. Blood pressure will be reassessed at the next regular appointment. Mild intermittent asthma 08/31/2016 Assessment & Plan (02/28/2017 4:21 PM LOAD TESTER): Albuterol p.r.n. for asthma works effectively for [...] (09/12/2021): Added automatically from request for surgery [id number] Assessment & Plan (12/20/2021 5:25 PM CDT): [...] (04/17/2019): Added automatically from request for surgery [id number] Chest tightness 01/07/2019 10/04/2019 Chest pain 01/07/2019 [...] therapy. Assessment & Plan (03/19/2018 12:56 PM LOAD TESTER): Patient has had pain over the maxillary [...] which is productive. Coughing is very minimal usav-wxh-[id number] medications have not helped him. Head congestion 02/02/2018 11/01/2020 Assessment & Plan (06/07/2020 6:02 PM CDT): Sore throat head congestion patient which urgent cares facility [facility] located in [facility] his strep test and COVID test [...] time Assessment & Plan (02/02/2018 1:12 PM LOAD TESTER): Patient has had head congestion for 2 [...] be going out of town Sunday to [place] he is concerned about developing other problems related to this. Tinea cruris 10/23/2017 06/21/2020 Assessment & Plan (10/24/2017 5:57 PM CDT): Patient is symptomatic for less than 2 weeks. He is using azlv-mbe-kjwtlcm Lamisil which is helped him.. Patient's working [...] 02/28/2017 Assessment & Plan (01/17/2017 11:35 AM LOAD TESTER): Patient's estimate dizziness/positional vertigo. Which appears to have resolved not is less active involved with moving much bending and twisting and and changing positions. Patient will be involved with this in the next few days advised him try Antivert see what resumes relieve his symptoms Bilateral hand pain 08/31/2016 06/22/19 21 Assessment & Plan (01/17/2017 11:36 AM LOAD TESTER): On last visit patient having bilateral hand [...] abdominal surgeries with complications. Acute nasopharyngitis 07/26/20162019 Encounters Date Type Department Care Team Description 03/21/2024 Orders Only [facility] [address] [place] [address] Fredy Malagon MD Encounter for examination of ears and hearing after failed hearing screening (Primary Dx) 02/27/2024 Telephone [facility] at [address] [place] [phone] Jose Miguel Cha MA 02/26/2024 8:45 AM LOAD TESTER Office Visit [facility] at [address] [place] [address] Temo Ureña MD PAOD (peripheral arterial occlusive disease) (CMS/HCC) ([facility]) (Primary Dx); Carotid stenosis, bilateral; Mixed hyperlipidemia; Atherosclerosis of [place] coronary artery of [place] heart with angina pectoris (CMS/HCC) ([facility]) 02/11/2024 12:45 PM LOAD TESTER - 02/11/2024 11:59 PM LOAD TESTER Hospital Encounter [facility] [address] [place] [address] Atherosclerosis of [place]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, bilateral legs (HCC) Discharge Disposition: Discharge to home or self care 02/06/2024 Orders Only [facility] at [facility] [address] [facility] [address] [place] [phone] Temo Ureña MD Atherosclerosis of [place]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, bilateral legs (HCC) (Primary Dx) 02/04/2024 7:21 AM LOAD TESTER - 02/04/2024 11:59 PM LOAD TESTER Hospital Encounter [facility] [address] [place] [phone] PVC (premature ventricular contraction) Discharge Disposition: Discharge to home or self care 02/04/2024 7:21 AM LOAD TESTER - 02/04/2024 11:59 PM LOAD TESTER Hospital Encounter [facility] [address] [place] [phone] Atherosclerosis of [place]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, bilateral legs (HCC); Atherosclerosis of [place]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, right leg (HCC) Discharge Disposition: Discharge to home or self care 01/10/2024 9:45 AM LOAD TESTER Office Visit [facility] [address] [facility] [address] [place] [address] Fredy Malagon MD History of atherosclerotic heart disease (Primary Dx); Medicare annual wellness visit, subsequent; Mixed hyperlipidemia; Thyroid nodule; Anxiety; Essential hypertension from Last 3 Months Immunizations Name Administration Dates Next Due COVID-19 mRNA (RingCaptcha) 0.3 m L (30 mcg) vaccine (12 [...] Free 11/21/2023 Tdap 10/16/2018 ZOSTER Recombinant 07/23/2023,01/20/2023 Surgical History Surgery Date Site/Laterality Comments HERNIA REPAIR [address] Bauer OTHER SURGICAL HISTORY rotator cuff surgery 2013-Dr Reeder CORRECTION HAMMER TOE 02/19/1995 - 02/19/[address] Stein OTHER SURGICAL HISTORY ruptured appendix - 1990 Dr Ponce COLONOSCOPY 02/19/2011 - 02/19/2012 Medical History Medical History Date Comments Hypertension Peripheral vascular disease (HCC) Chronic bronchitis (HCC) Stroke (HCC) 10 yrs Arthritis Hyperlipidemia Family History Medical History Relation Name Comments Lung cancer Brother Lung cancer Father Lung cancer Mother Relation Name Status Comments Brother Father Mother Social History Tobacco Use Types Packs/Day Years Used Date Smoking Tobacco: Former Cigarettes 2.5 30 1 966 - 1995 Smokeless Tobacco: Never Tobacco Cessation:Counseling Given: Not [...] on file Legal Sex Male 4:16 AM LOAD TESTER Gender Identity Not on file Sexual Orientation Not on file 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 Not on file Not on file Not on file Obstetrics History Last Filed Vital Signs Vital Sign Reading Time Taken Comments Blood Pressure 160/77 02/26/2024 8:32 AM LOAD TESTER Pulse 54 02/26/2024 8:32 AM LOAD TESTER Temperature 36.8 C (98.2 F) 01/10/2024 10:10 AM LOAD TESTER Respiratory Rate 18 02/26/2024 8:32 AM LOAD TESTER Oxygen Saturation 99% 01/10/2024 10:10 AM LOAD TESTER Inhaled Oxygen Concentration - - Weight 90.7 kg (200 lb) 02/26/2024 8:32 AM LOAD TESTER Height 175.3 cm (5' 9 ) 02/26/2024 8:32 AM LOAD TESTER Body Mass Index 29.53 02/26/2024 8:32 AM LOAD TESTER Plan of Treatment Health Maintenance Due Date Last Done Comments Depression Screening 01/09/2025 01/10/2024, 01/09/20 23 Fall Risk Assessment 01/09/2025 01/10/2024, 06/29/2023, 01/08/2023 Well Visit 65+ 01/09/2025 01/10/2024, 12/21, 12/20/2021, Additional history exists DTaP/Tdap/Td Vaccine (3 - Td or Tdap) 11/20/2033 11/21/2023, 10/16/2018 Hepatitis C Screening Completed 05/26/2016 Pneumococcal vaccine 65+ Completed 11/27/2019, 09/20 Colon Cancer Screening-CT Colonography Discontinued 12/21/2021 Colon Cancer Screening-Colonoscopy Discontinued 12/21/2021 Colon Cancer Screening-DNA Stool Discontinued 12/22/19, 08/27/2021 Colon Cancer Screening-FIT Discontinued 12/21/2021, Colon Cancer Screening-FOBT Discontinued 12/21/2021, 0 08/27/2021 Colon Cancer Screening-Sigmoidoscopy Discontinued 12/21/2021 Colorectal Cancer Screening Discontinued Zoster Vaccine Completed 07/23/2023, 01/20/2023 Abdominal Aortic Aneurysm (A AA) Screen Completed 09/01/2023, 03/02/2023, 04/17/2019 Covid-19 Vaccine Completed 12/08/2023, 08/2022, 02/03/2022, Additional history exists Influenza Vaccine Completed 12/08/2023, , 11/23/2021, Additional history exists Hepatitis B Screening Discontinued Medical Devices Implanted Type Area Division Sergeant Device Identifier Shelf Expiration Date Model / Serial / Lot Prifloat Angio-Seal Vip 6fr Closere Device [id number] - [id number] Implanted:Qty: 1 on 03/06/2023 by Temo Ureña MD at [facility] Other - see comments [employer] Juliano 08/08/2023 [id number] / / [id number] [employer] [id number] Zilver Ptx 6mm 120mm 125cm Drug Elute Otw Delivery System - [id number] Implanted:Qty: 1 on 10/10/2018 by Temo Ureña MD at [facility] Stent [employer] 12/08/2019 [id number] / / [id number] [facility] [id number] Cordis Smart Control 9mm 40mm 80cm Delivery Handle Self Expand Latex Free - [id number] Implanted:Qty: 1 on 10/10/2018 by Temo Ureña MD at [facility] Stent [facility] 04/19/2019 [id number] / / [id number] [facility] [id number] Cordis Smart Control 8mm 40mm 120cm Delivery Handle Self Expand Latex Free - [id number] Implanted:Qty: 1 on 10/10/2018 by Temo Ureña MD at [facility] Stent [facility] 02/18/2019 [id number] / / [id number] [employer] [id number] Zilver Ptx 6mm 120mm 125cm Drug Elute Otw Delivery System - [id number] Implanted:Qty: 1 on 01/22/2019 by Temo Ureña MD at [facility] Stent [employer] 05/10/2020 [id number] / / [id number] [employer] [id number] Zilver Ptx 6mm 60mm 125cm Drug Elute Otw Delivery System - [id number] Implanted:Qty: 1 on 01/22/2019 by Temo Ureña MD at [facility] Stent [employer] 05/10/2020 [id number] / / [id number] [employer] Juliano Erica 6mm 120mm 130cm Drug Elute Delivery System Stent [employer]ascular [id number] - [id number] Implanted:Qty: 1 on 03/06/2023 by Temo Ureña MD at [facility] Stent [employer] Juliano 08/26/2023 [id number] / / [id number] [employer] Juliano Erica 6mm 120mm 130cm Drug Elute Delivery System Stent Vascular [id number] - [id number] Implanted:Qty: 1 on 03/06/2023 by Temo Ureña MD at [facility] Stent [employer] Juliano 08/26/2023 [id number] / / [id number] Daig Jul[employer] [id number] Angio-Seal Evolution 6fr .035in Guidewire Bypass Tube Suture - [id number] Implanted:Qty: 1 on 10/10/2018 by Temo Ureña MD at [facility] Daig [employer] 07/20/2019 [id number] / / [id number] [employer] [id number] Angio-Seal Evolution 6fr .035in Guidewire Bypass Tube Suture - [id number] Implanted:Qty: 1 on 01/22/2019 by Temo Ureña MD at [employer] 09/19/2019 [id number] / / [id number] [employer] [id number] Stent Tpr 3.25mm .034-.029in 5fr 33mm Cor Everolimus Elut - [id number] Implanted:Qty: 1 on 04/17/2019 by Temo Ureña MD at [facility] 03/04/2020 [id number] / / [id number] [employer] [id number] Stent Tpr 3.25mm .034-.029in 5fr 12mm Cor Everolimus Elut - [id number] Implanted:Qty: 1 on 04/17/2019 by Temo Ureña MD at [facility] 04/12/2020 [id number] 2 / [id number] [employer] [id number] System Coronary Stent Xience Kortney Everolimus L18 Mm Od4 Mm Rapid Exchange - [id number] Implanted:Qty: 1 on 04/17/2019 by Temo Ureña MD at [facility] 12/04/2019 [id number] / / [id number] [employer] [id number] Angio-Seal Evolution 6fr .035in Guidewire Bypass Tube Suture - [id number] Implanted:Qty: 1 on 04/17/2019 by Temo Ureña MD at [facility] [employer] 10/20/2019 [id number] / / [id number] [facility] [id number] Angio-Seal Evolution 6fr .035in Guidewire Bypass Tube Suture - [id number] Implanted:Qty: 1 on 04/17/2019 by Temo Ureña MD at [facility] [employer]ig [employer] [id number] / / Procedures Procedure Name Priority Date/Time Associated Diagnosis Comments US LULA Schedule Routine, Read Routine (OP Routine) 02/11/2024 1:18 PM LOAD TESTER Atherosclerosis of [place]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, bilateral legs (HCC) VL US ARTERIAL DUPLEX LOWER EXTREMITY BILATERAL Schedule Routine, Read Routine (OP Routine) 02/04/2024 10:48 AM LOAD TESTER Atherosclerosis of [place]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, bilateral legs (HCC) Atherosclerosis of [place]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, right leg (HCC) HOLTER MONITOR 48 HR Routine 02/04/2024 7:22 AM LOAD TESTER PVC (premature ventricular contraction) CT CHEST ABDOMEN PELVIS W CONTRAST ED 09/01/2023 7:49 AM CDT COLONOSCOPY 12/21/2021 11:15 AM CDT HEPATITIS C ANTIBODY Routine 05/26/2016 8:35 AM CDT from Last 3 Months or Most Recently Relevant to Health Maintenance Results * US LULA (02/11/2024 1:18 PM LOAD TESTER) Anatomical Region Laterality Modality Vascular N/A Ultrasound 02/11/2024 12:5 6 PM LOAD TESTER Narrative 02/11/2024 4:04 PM LOAD TESTER [address] , [place] [address] Ankle Brachial Index Report Patient Name: COMPA TORRES : 1945 (78y 5m) Gender: M Study Date: 02/11/2024 12:56:00 PM Disposal Man: Order Provider: TEMO UREÑA Quality: Adequate Ref Provider: TEMO UREÑA PROCEDURES: Arterial Report: A bilateral extremities ankle/brachial index was performed. INDICATIONS: I70.213 Atherosclerosis of [place]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, bilateral [...] By: Temo Ureña MD 02/11/2024 4:03:44 PM LOAD TESTER Procedure Note Temo Ureña MD - 02/11/[address] [address] Ankle Brachial Index Report Patient Name: COMPA TORRES : 1945 (78y 5m) Gender: M Study Date: 02/11/2024 12:56:00 PM Disposal Man: Order Provider: TEMO UREÑA Quality: Adequate Ref Provider: TEMO UREÑA PROCEDURES: Arterial Report: A bilateral extremities ankle/brachial index wasperformed. INDICATIONS: I70.213 Atherosclerosis of [place] arteries of extremities withintermittent claudication, bilateral legs. [...] By: Temo Ureña MD 02/11/2024 4:03:44 PM LOAD TESTER us Temo Ureña MD IMG US PROCEDURES Final Result * US Arterial Duplex Lower Extremity Bilateral (02/04/2024 10:48 AM LOAD TESTER) Anatomical Region Laterality Modality Vascular Bilateral Ultrasound 02/05/2024 5:29 AM LOAD TESTER Narrative 02/05/2024 5:34 AM LOAD TESTER EXAM DESCRIPTION: VL US ARTERIAL DUPLEX LOWER EXTREMITY BILATERAL REASON FOR STUDY: Atherosclerosis of [place] Arteries of Extremities with Intermittent Claudication, Right [...] Kwan Rodrigues M.D. RB: BRYAN Report ID: [id number] Reading Location: [place] [address] Procedure Note Kwan Rodrigues MD - 02/05/2024 EXAM DESCRIPTION: VL US ARTERIAL DUPLEX LOWER EXTREMITY BILATERAL REASON FOR STUDY: Atherosclerosis of [place] Arteries of Extremities with Intermittent Claudication, Right [...] 5:34 AM - Electronically signed by Kwan Rodriguse M.D. RB: BRYAN Report ID: [id number] Reading Location: [id number] us Temo Ureña MD [facility] US PROCEDURES Final Result * 48 HR Holter Monitor (02/04/2024 7:22 AM LOAD TESTER) Anatomical Region Laterality Modality Electrocardiogra phy 02/04/2024 8:30 AM LOAD TESTER Narrative 02/11/2024 11:04 [place] [address] HOLTER MONITOR Patient Name: COMPA TORRES CHARLES : 1945 Study Date: 02/04/2024 8:30:00 AM Gender: M Tech: Ref Provider: TEMO UREÑA Height(Cm): BSA: Weight(Kg): Order Provider: TEMO UREÑA - PROCEDURES: Holter Report: Holter Monitor Report. INDICATIONS: I49.3 Ventricular premature depolarization. FINDINGS: Protocol: Recording Duration (Ordered): [id number] Number of Diary entries 2024-02-04 08:30:00 CONCLUSIONS: [...] By: Dr Kwan Beasley 02/11/2024 11:04:46 AM LOAD TESTER Procedure Note Kwan Beasley MD - 02/11/[address] [address] HOLTER MONITOR Patient Name: COMPA TORRES CHARLES : 1945 Study Date: 02/04/2024 8:30:00 AM Gender: M Tech: Ref Provider: TEMO UREÑA Height(Cm): BSA: Weight(Kg): Order Provider: TEMO UREÑA - PROCEDURES: Holter Report: Holter Monitor Report. INDICATIONS: I49.3 Ventricular premature depolarization. FINDINGS: Protocol: Recording Duration (Ordered): [id number] Number of Diary entries 2024-02-04 08:30:00 CONCLUSIONS: [...] By: Dr Kwan Beasley 02/11/2024 11:04:46 AM LOAD TESTER us Temo Ureña MD [facility] [...] by Meño Evans M.D. JR: Report ID: [id number] Reading Location: [place] [address] Procedure Note Meño Evans MD - 09/01/2023 [...] CTA abdominal aorta 03/02/2023, CT abdomen and jljekb3004/17/2019, CT chest 07/30/2018 FINDINGS: CHEST HEART: Heart [...] by Meño Evans M.D. JR: Report ID: [id number] Reading Location: [id number] Tiffany Larson MD [facility] CT PROCEDURES F inal Result * COLONOSCOPY (12/21/2021 11:15 AM CDT) Anatomical Region Laterality Modality Other Narrative Procedure Note Lou Barone MD - 12/21/2021 11:15 AM CDT [facility] Patient Name: Compa Torres Procedure Date: 12/21/2021 11:15 AM Date of : 1945 Admit Type: Outpatient Age: 76 Gender: Male Attending MD: Lou Barone M.D. Room: [facility] ENDOSCOPY ROOM 1 Note Status: Finalized Patient [...] under direct vision. The Pediatric Colonoscope [id number] was introducedthrough the anus and advanced to [...] 11:15 AM Procedure Code(s): --- Professional --- 61488, Colonoscopy, flexible; with biopsy, single or multiple Diagnosis Code(s): --- Professional --- Z12.11, Encounter for screening for malignant neoplasm of colon K64.8, Other hemorrhoids D12.2, Benign neoplasm of ascending colon D12.4, Benign neoplasm of descending colon K57.30, Diverticulosis of large intestine without perforation orabscess without bleeding CPT copyright 2020 [place] [employer]. All rights reserved. The codes documented in this report are preliminary and upon head boys golf coach reviewmay be revised to meet current compliance requirements. Recognized by the [place] [employer] for promoting [facility] us Lou Barone MD ENDOSCOPY PROCEDURES Final Result * Hepatitis C antibody (05/26/2016 8:35 AM CDT) Hep C Ab Negative Negative JORGE PENNINGTON Blood specimen (specimen) 05/26/2016 8:35 AM CDT 05/26/2016 6:56 PM CDT us Fredy Malagon MD LAB MICROBIOLOGY - GENERAL ORDERABLES Edited Result - Final JORGE PENNINGTON [id number] Department [place] [address] from Last 3 Months or Most Recently Relevant to Health Maintenance Insurance MEDICARE [facility] Address: [address] [address] [place] [address] [employer] MEDICARE [facility] Address: [address] [address] [place] [address] [facility] MEDICARE Advance Directives For more information, please contact: [phone] * Full Code (Latest Code Status on [...] 10:03 AM 08/19/2020 6:00 PM Care Teams Sweatband Drummer Relationship Specialty Start Date End Date Fredy Malagon MD PCP - General 05/26/16 Trav Molina MD Consulting Physician Pulmonary Disease 09/27/18 Temo Ureña MD Consulting Physician Cardiology 10/10/18
--- OUTSIDE RECORDS SUMMARY | 2024-03-31 11:39 | XMS_ITS | Continuity of Care Document ---
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 Name Role Phone Sofía Hansen MD Unavailable Unavailable Allergies, Adverse Reactions, Alerts Substance Reaction Status Criticality salicylamide Active No Information caffeine Active No Information aspirin Active No Information acetaminophen Active No Information Medications Medication Instructions Dosage Effective Dates (start - stop) Status Comments gabapentin ER 300 mg (9)-600 mg (69) tablet,extended release 24 hr - Active ramipril 2.5 mg capsule take 1 capsule (2.5MG) by oral route every day 2.5 MG - Active fluticasone 110 mcg/actuation Aerosol Inhaler inhale 1 puff (110MCG) by inhalation route 2 times every day 110 MCG - Active ibuprofen 600 mg tablet take 1 tablet (600MG) by oral route 3 times every day with food 600 MG - Active Aspir-81 81 mg tablet,delayed release take 1 tablet (81MG) by oral route every day - Active Procedures Procedure Date EP Compre Exam W Or Withou Ref 13 Refraction Glare Test Advance Directives Directive Yes / No Effective Date File Name No Information Encounters Encounter Description Practice Location Reason(s) For Visit Diagnoses Date Provider Providers Copied on Encounter [facility], [address] [place], [id number], [place] tel:[phone] [facility] Donnie No Information 4 Tyrone Gore. [address] [place], [id number] , [place]. tel:[phone] [facility], [address] [place], [id number], [place] tel:[phone] [facility] [place] Cataract NuclearDiplopia Sep-0 3 Tyrone Gore. [address] [place], [id number] , [place]. tel:[phone] Referring Provider: Sofía Arrington, [address] [place], [address] . tel:[phone] Family History Family Member Type Diagnosis Age At Onset No Information Payers Payer name Insurance type Covered green party ID Authoriza tion(s) [employer] [id number] [employer] CI [id number] Social History Type Description Quantity Date Captured Comments Sex Male Smoking Status No Information Chief Complaint And Reason For Visit No Information Reason For Referral Reason For Referral No Information History Of Present Illness Encounter Date Complaint History Of Prese nt Illness No Information Functional Status Date Functional Assessmen t No Information Instructions Date Instruction Additional Infor mation - Return 1 year with Sofía Hansen M.D. for long refract Related to Cataract, nuclear sclerosis senile Cataract, nuclear sc lerosis senile OU - Cataract OU, CE is not recommended. Explained decrease in vision and shadows are due to cataracts. New glasses Rx given to pt. Recommend taking multivitamins, avoid cigarette smoking, and wearing sunglasses outdoors. Related to Cataract, nuclear sclerosis senile Diplopia - Discussed diplopia with pt. Explained muscle misalignment is not seen and shadows seen are due to cataracts. Related to Diplopia Assessments Type Assessment Date No Information Patient Care Teams Name Effective Dates (start - stop) Status Members No Information
--- OUTSIDE RECORDS SUMMARY | 2024-03-31 11:39 | XMS_ITS | Patient Health Summary ---
Author Organization [facility] Address [address] [place] [address] Care Team Providers Care Private Pilot Name Role Phone Fredy Malagon MD Primary Care Provider [phone] Note from [facility],non-owned Affiliates and Associated Physician Practices is amultiple site organization consisting of ambulatory clinics and hospital sitesin [place], [place], [place] and [place]. This disclosure is being madepursuant to the Care Everywhere program and may not contain all information available regarding this patient. Last updated 17.[facility] Allergies No known active allergies Medications * Be aware that medications may not be up to date on this document. Alwaysverify current medications with the patient. * fluticasone propionate (FLONASE) 50 MCG/ACT nasal spray Bulger 1 spray into the nose once daily * gabapentin (NEURONTIN) 300 MG capsule(Started 01/06/2020) TAKE 1 CAPSULE BY MOUTH THREE TIMES A DAY * roflumilast (DALIRESP) 500 MCG tablet Take 500 mcg by mouth once daily * prasugrel (EFFIENT) 10 MG tablet(Started 07/16/2019) Take 10 mg by mouth once daily * atorvastatin (LIPITOR) 40 MG tablet(Started 02/26/2020) TAKE 1 TABLET BY MOUTH EVERY DAY * Loratadine 10 MG Take 10 mg by mouth once daily * meloxicam (MOBIC) 15 MG tablet(Started 02/05/2020) TAKE 1 TABLET BY MOUTH EVERY DAY * metoprolol succinate XL 24hr (TOPROL XL) 25 MG tablet(Started 03/10/2020) TAKE 1 TABLET BY MOUTH EVERY DAY * tiotropium (SPIRIVA RESPIMAT) 2.5 MCG/ACT inhaler Inhale 2 puffs by mouth * ISOSORBIDE DINITRATE PO * ibuprofen (MOTRIN) 800 MG tablet Take 800 mg by mouth every 6 hours as needed for Pain * diphenhydramine 12.5mg/ml, 30ml,; visc lidocaine 2%, 30ml,; maalox, 30ml, (MIRACLE MOUTHWASH) SUSP(Started 06/05/2020) 1:1:1 solution of viscous lidocaine 2%, Maalox, diphenhydramine 12.5mg/5ml elixir Social History Tobacco Use Types Packs/Day Years [...] Mass Index 28.06 06/05/2020 3:32 PM CDT Procedures * SARS-COV-2 (COVID-19)+INFLU A+B AG (AMB) POC(Performed 06/05/2020) Performed for Acute pharyngitis, unspecified etiology * STREP A SCREEN - POINT OF CARE (AMB) STL(Performed 06/05/2020) Performed for Acute pharyngitis, unspecified etiology Results * SARS-COV-2 (COVID-19)+INFLU A+B AG (AMB) POC (06/05/2020 3:36 PM CDT) Pathologist [facility] Influenza A Antigen Rapid Negative Negative [facility] Influenza B Antigen Rapid Negative Negative [facility] SARS-CoV-2 Ag Negative Negative [facility] COVID Internal Control Acceptable Acceptable [facility] Lot # [id number] [facility] Expiration Date 01 19 2021 [facility] Instrument Serial Number [id number] [facility] Microbiology SPECIMEN FROM NASAL FOSSAE / Unknown 06/05/2020 3:36 PM CDT Narrative [facility] - 06/05/2020 3:37 PM CDT Negative results should be treated as presumptive and confirmation with a molecular assay, if necessary, for patient management, may be performed. Negative results do not rule out COVID-19 and should not be used as the sole basis for treatment or patient management decisions, including infection control decisions. Negative results should be considered in the context of a patient's recent exposures, history and the presence of clinical signs and symptoms consistent with COVID-19. SARS-CoV-2 antigen testing is authorized for use with nasal (Veritor, BinaxNOW, or Chela) or nasopharyngeal (Chela) swabs collected from individuals who are suspected of COVID-19 infection by their healthcare provider within the first five days of onset of symptoms. False-positive SARS-CoV-2 test results are more likely to occur when disease prevalence is low (less than 1%). False-negative SARS-CoV-2 test results are more likely to occur when disease prevalence is high (greater than 10%). This test has been authorized by the Food and Drug administration (FDA)under an Emergency Use Authorization (EUA). This test is only authorized for the duration of time the declaration that circumstances exist justifying the authorization of emergency use of in vitro diagnostic tests for detection of SARS-CoV-2 virus and/or diagnosis of COVID-19 infection under section 564(b)(1) of the Act, 21 U.S.C 360bbb-3 (b)(1), unless the authorization is terminated or revoked sooner. Fact Sheets for this EUA assay are available upon request. 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
--- OUTSIDE RECORDS SUMMARY | 2024-03-31 11:39 | XMS_ITS | Continuity of Care Document ---
Author Organization [facility] Address [address] [place], [place] [address] Phone Care Team Providers Care Systems Planner Name Role Phone Nichole Richmond DO, Mauro Unavailable Unavailable Allergies, Adverse Reactions, Alerts Substance Reaction Status Criticality levofloxacin Active No Information Medications Medication Instructions Dosage Effective Dates (start - stop) Status Comments gabapentin 300 mg capsule take 1 capsule by oral route 3 times every day 300 MG - Active simvastatin 5 mg tablet take 1 tablet by oral route every day in the evening 5 MG - Active ramipril 1.25 mg capsule take 1 capsule by oral route every day 1.25 MG - Active Procedures Procedure Date Offic E&M Yimi Phillips NP Advance Directives Directive Yes / No Effective Date File Name No Information Encounters Encounter Description Practice Location Reason(s) For Visit Diagnoses Date Provider Providers Copied on Encounter [facility] , [address], [place], [id number], [place] tel:[phone] [facility] No Information Nichole Richmond DO Mauro. [address], [place], [place], [id number], [place]. tel:[phone] Offic E&M Yimi Phillips NP [facility] , [address], [place], [id number], [place] tel:[phone] [facility] Tear Film Insuff - Dry Eye SyndromeTear Film Insuff - Dry Eye SyndromeCatara ct, NuclearCatarac t, Nuclear Nichole Richmond DO Mauro. [address], [place], [place], [id number], [place]. tel:[phone] Family History Family Member Type Diagnosis Age At Onset Multiple Problem (finding) Heart Disease/HTN Grandmother Problem (finding) Cancer Payers Payer name Insurance type Covered green party ID Authoriza tion(s) [employer] CI [id number] [employer] CI [id number] Social History Type Description Quantity Date Captured Comments Sex Male Smoking Status No Information Chief Complaint And Reason For Visit No Information Reason For Referral Reason For Referral No Information History Of Present Illness Encounter Date Complaint History Of Prese nt Illness No Information Functional Status Date Functional Assessmen t No Information Instructions Date Instruction Additional Infor mation 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 Will continue to observe condition and or symptoms. Patient instructed to use artificial tears as needed. Educational materials provided:Dry eye syndrome, Eye drops. Start Alrex TID OS to help with inflammation from dryness. 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 The patient chooses no surgery at this time. The patient will monitor vision changes and contact us if any decrease in vision occurs. Educational materials provided:Cataract. Related to Cataract, Nuclear Assessments Type Assessment Date No Information Patient Care Teams Name Effective Dates (start - stop) Status Members No Information
--- OUTSIDE RECORDS SUMMARY | 2024-03-31 11:39 | XMS_ITS ---
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 Claudication 03/06/2023 Anxiety 02/22/2023 Assessment & Plan (01/11/2024 1:14 PM MANAGER SCIENCE): Anxiety stable at this time no longer on Lexapro or BuSpar Assessment & Plan (02/23/2023 5:03 PM MANAGER SCIENCE): Patient has noticed increased anxiety expressed in [...] 01/08/2023 Assessment & Plan (01/08/2023 5:33 PM MANAGER SCIENCE): Patient is a right side of his scalp frontal region very suggestive of basal cell carcinoma. He previously had a basal cell carcinoma earlier this year was successfully removed patient is referred back to [facility] plastic surgery where he previously had surgery. 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 Looking at has a small create of formation consistent with basal cell carcinoma.. Refer to plastic surgery appointment for 05/15/[address] Kiet Lancaster with [facility] group has been made. History of exudative [...] 09/30/2019 Assessment & Plan (01/11/2024 1:11 PM MANAGER SCIENCE): Patient advised me he is comfortable with [...] deficit Assessment & Plan (01/24/2021 5:40 PM MANAGER SCIENCE): Patient is having a flare for back [...] some point in the future. Atherosclerosis of [place] co ronary artery of [place] heart with angina pectoris ([facility]) 03/07/2019 Carotid stenosis, bilateral 03/07/2019 Atherosclerosis of [place] artery of both lower e xtremities 01/10/2019 Overview (01/10/2019): Added automatically from request for surgery [id number] Assessment & Plan (12/20/2021 5:36 PM CDT): PATIENT CONTINUES SEE CARDIOLOGY YEARLY SO HAS PA D IS STABLE AT THIS TIME Hyperlipidemia 01/07/2019 Assessment & Plan (01/11/2024 1:17 PM MANAGER SCIENCE): Patient is maintained on atorvastatin 80 mg [...] ratio 4 Legend: (L) Low Atherosclerosis of [place] of both lower extremities with intermittent claudication 10/02/2018 Overview (10/02/2018): Added automatically from request for surgery [id number] Assessment & Plan (12/24/2018 6:23 PM MANAGER SCIENCE): Patient has successful stent placed in the left lower extremity October 12, 2018. Patient is less symptomatic as result.. Still being observed for problem with the right lower extremities as well as carotid ultrasounds have been completed. He is under care of Cardiology . Thyroid nodule 08/18/2018 Assessment & Plan (01/11/2024 1:11 PM MANAGER SCIENCE): Date on thyroid nodule has been ordered by his human resource management instructor this is scheduled for next week Assessment & Plan (12/24/2018 6:25 PM MANAGER SCIENCE): Patient's a sonogram schedule for February 2019. [...] PFTS. Assessment & Plan (12/24/2018 6:20 PM MANAGER SCIENCE): Patient non care shock absorber installer at [facility] diagnosis emphysema he is doing reasonably well with present medications of albuterol HFA p.r.n. Her medication Acapella this is according to the shock absorber installer notes Assessment & Plan (08/24/2018 6:58 PM CDT): Patient was seen by shock absorber installer Dr. Cárdenas made a diagnosis of emphysema [...] At this time refer this patient on shock absorber installer hopefully at [facility]. Patient is taking the medication [...] pulmonology. Assessment & Plan (04/15/2018 11:57 AM MANAGER SCIENCE): Patient's cough is changed to dry cough [...] STATUS. Assessment & Plan (04/04/2018 2:47 PM MANAGER SCIENCE): Patient's now the advised me that he [...] pressure. Assessment & Plan (03/26/2018 10:56 AM MANAGER SCIENCE): Patient has a consistent productive cough since [...] time. Assessment & Plan (02/28/2017 4:20 PM MANAGER SCIENCE): Osteoarthritis occasional joint pains Naprosyn works very well for minutes tolerated does not increased abdominal pain. Chronic rhinitis 02/28/2017 Assessment & Plan (02/28/2017 4:20 PM MANAGER SCIENCE): Patient utilizing Flonase effective in helping with this chronic rhinitis Medicare annual wellness visit, subsequent 02/26 Assessment & Plan (01/11/2024 12:57 PM MANAGER SCIENCE): History and physical completed patient's health risk assessment health maintenance reviewed and addressed. Patient's feels well he does not identify any new health problems since his last annual exam. He continues to follow-up with cardiology. Assessment & Plan (01/08/2023 5:31 PM MANAGER SCIENCE): History and physical completed patient's health risk [...] Cologuard Assessment & Plan (12/24/2018 6:27 PM MANAGER SCIENCE): Patient's history and physical completed health risk assessment health maintenance reviewed. Immunization discussed in deficiency is addressed.. Please see assessment and plans on going chronic health problems Assessment & Plan (02/28/2017 4:17 PM MANAGER SCIENCE): History and physical completed patient is very [...] 02/26/2017 Assessment & Plan (02/28/2017 4:16 PM MANAGER SCIENCE): Patient is symptomatic for last 6-12 months. Viagra prescribed his insurance will pay for 8 tablets per month. Side effects of medications discussed. Essential hypertension 08/31/2016 Assessment & Plan (01/11/2024 1:13 PM MANAGER SCIENCE): Blood pressure 142/60 predominant blood pressure this [...] pressure Assessment & Plan (01/08/2023 5:32 PM MANAGER SCIENCE): Pressure well controlled patient is tolerating medications Assessment & Plan (07/08/2022 3:17 PM CDT): Blood pressure remains well controlled patient is tolerating medications no change in therapy Assessment & Plan (04/20/2022 2:07 PM MANAGER SCIENCE): Blood pressure remains well controlled no change [...] therapy Assessment & Plan (12/24/2018 6:23 PM MANAGER SCIENCE): Blood pressure is very well control no change in therapy patient is tolerating medications Assessment & Plan (08/24/2018 7:01 PM CDT): Hypertension remains well control no change in therapy see him back in the next several months regarding his hypertension management. Patient is tolerating medications. Assessment & Plan (04/15/2018 12:03 PM MANAGER SCIENCE): Hypertension is well controlled at this time. [...] him. Assessment & Plan (01/17/2017 11:38 AM MANAGER SCIENCE): Hypertension is unchanged. Continue current treatment regimen. Dietary sodium restriction. Regular aerobic exercise. Continue current medications. Blood pressure will be reassessed at the next regular appointment. Assessment & Plan (08/31/2016 5:16 PM CDT): Hypertension is unchanged. Continue current treatment regimen. Blood pressure will be reassessed at the next regular appointment. Mild intermittent asthma 08/31/2016 Assessment & Plan (02/28/2017 4:21 PM MANAGER SCIENCE): Albuterol p.r.n. for asthma works effectively for him. Assessment & Plan (08/31/2016 5:17 PM CDT): Asthma Control using albuterol HFA on a p.r.n. Basis. Current Oncology Plans No current plan information found. Past Plans No past plan information found. Radiation Treatments * No radiation treatments are documented for this patient in [employer]. Treatments may have been administered in another system. Lifetime Dose Tracking * Chemical Lifetime Dose Automatic Entry Manual Entr y Air kerma at the reference point (Ka,r) 1,658 mGy 0 mGy 1,658 mGy Resolved Problems Problem Noted Date Diagnosed Date [...] (09/12/2021): Added automatically from request for surgery [id number] Assessment & Plan (12/20/2021 5:25 PM CDT): [...] (04/17/2019): Added automatically from request for surgery [id number] Chest tightness 01/07/2019 10/04/2019 Chest pain 01/07/2019 [...] therapy. Assessment & Plan (03/19/2018 12:56 PM MANAGER SCIENCE): Patient has had pain over the maxillary [...] which is productive. Coughing is very minimal [id number] medications have not helped him. Head congestion 02/02/2018 11/01/2020 Assessment & Plan (06/07/2020 6:02 PM CDT): Sore throat head congestion patient which urgent cares facility [facility] located in [facility] his strep test and COVID test was [...] time Assessment & Plan (02/02/2018 1:12 PM MANAGER SCIENCE): Patient has had head congestion for 2 [...] be going out of town Sunday to [place] he is concerned about developing other problems related to this. Tinea cruris 10/23/2017 06/21/2020 Assessment & Plan (10/24/2017 5:57 PM CDT): Patient is symptomatic for less than 2 weeks. He is using [id number] Lamisil which is helped him.. Patient's working [...] 02/28/2017 Assessment & Plan (01/17/2017 11:35 AM MANAGER SCIENCE): Patient's estimate dizziness/positional vertigo. Which appears to have resolved not is less active involved with moving much bending and twisting and and changing positions. Patient will be involved with this in the next few days advised him try Antivert see what resumes relieve his symptoms Bilateral hand pain 08/31/2016 06/22/19 Assessment & Plan (01/17/2017 11:36 AM MANAGER SCIENCE): On last visit patient having bilateral hand [...]
--- OUTSIDE RECORDS SUMMARY | 2024-03-31 11:39 | XMS_ITS | Clinical Summary ---
Author Organization [facility] Address [facility] [place] [address] Care Team Providers Care Precision Devices Inspector/Tester Name Role Phone Justin Ro MD Primary Care Provider + [phone] Temo Ureña MD Unavailable Allergies Active Allergy Reactions Criticality Noted Date Comments Caffeine Anxiety Low 10/24/2012 Levofloxacin Dizziness,Nausea Only 04/25/2021 Reaction: dizzy, nausea, Ramipril Cough Low 04/04/2018 Salicylamide Anxiety Low 10/24/2012 Takes meloxicam at home 04/18/19 Medications atorvastatin 40 MG tablet Take 1 tablet by mouth daily. 11/09/2020 Active fluticasone propionate 50 MCG/ACT nasal spray 1 spray by Nasal route daily. Active gabapentin 300 MG capsule Take 300 mg by mouth 2 (two) times daily. 02/14/2021 Active HYDROcodone-acet aminophen 10-325 MG tablet TAKE ONE TABLET BY MOUTH ONCE A DAY NEEDED FOR 30 DAYS 01/31/2021 Active traMADol 50 MG tablet TAKE 1 TABLET BY MOUTH TWICE A DAY NEEDED FOR BACK PAIN 12/14/2020 Active tiZANidine HCl 2 MG Cap TAKE 1 CAPSULE BY MOUTH NIGHTLY NEEDED FOR MUSCLE SPASMS 10/18/2020 Active DALIRESP 500 MCG Tab Take by mouth daily. 01/28/2021 Active prasugrel 10 MG tablet Take 10 mg by mouth daily. 04/05/2021 Active Loratadine 10 MG Cap Take 10 mg by mouth daily. Active metoprolol succinate ER 25 MG 24 hr tablet Take 25 mg by mouth daily. 04/04/2021 Active isosorbide mononitrate ER 30 MG 24 hr tablet Take 30 mg by mouth daily. 05/08/2020 Active albuterol sulfate HFA 108 (90 Base) MCG/ACT inhaler Inhale 2 puffs into the lungs every 6 (six) hours as needed for Wheezing. Active acetaminophen 325 MG tablet Take 650 mg by mouth every 6 (six) hours as needed for Pain. Active Active Problems No known active problems Social History Tobacco Use Types Packs/Day Years Used Date Smoking Tobacco: Former Cigarettes 2 30 0 08/14/1964 - 08/14/1994 Smokeless Tobacco: Never Tobacco Cessation:Counseling Given: No Comments:Former, Quit 30+ yrs ago Alcohol Use Standard Drinks/Week Comments Yes 0 (1 standard drink = 0.6 oz pur e alcohol) Occasional PHQ-2 Answer Date Recorded PHQ-2 Score - If the patient scores above 3, please move on to questions 3-9 0 08/03/2021 Sex and Gender Information Value Date Recorded Sex Assigned at Not on file Legal Sex Male 7:27 AM DRAMATIC COACH Gender Identity Male 04/27/2021 11:51 AM DRAMATIC COACH Sexual Orientation Straight 04/27/2021 11 :51 AM DRAMATIC COACH Last Filed Vital Signs Vital Sign Reading Time Taken Comments Blood Pressure 154/79 08/03/2021 8:25 AM CDT Pulse 63 08/03/2021 8:19 AM CDT Temperature 36.7 C (98 F) 08/03/2021 8:19 AM CDT Respiratory Rate 18 06/08/2021 11:11 AM CDT Oxygen Saturation 99% 08/03/2021 8:19 AM CDT Inhaled Oxygen Concentration - - Weight 96.3 kg (212 lb 3.2 oz) 08/03/2021 8:19 A M CDT Height 177.8 cm (5' 10 ) 08/03/2021 8:19 AM CDT Body Mass Index 30.45 08/03/2021 8:19 AM CDT Plan of Treatment Health Maintenance Due Date Last Done Comments Hepatitis C 08/14/1965 Zoster Vaccines (1 of 2) 08/14/1997 Annual Medicare Wellness Visit 08/14/2012 RSV Immunization or 60+ Years (1 - 1-dose 75+ series) 08/14/2022 COVID-19 Vaccine (2023-2 5 season) 2023 11/20/2020, 05/09/2020, 04/18/2020 Influenza Adult (#1) 2023 01/20/2021, 10/16/2018 DTaP, Tdap and Td Vaccines ( 2 - Td or Tdap) 10/16/2028 10/16/2018 Pneumococcal Vaccine: 65+ Years Completed 11/27/2019, 10/16/2018 Meningococcal B Vaccine Aged Out No l onger eligible based on patient's age to complete this topic Meningococcal Vaccine Aged Out No danielle emmanuel eligible based on patient's age to complete this topic RSV Immunizations Under 20 Months Aged Out No longer eligible b ased on patient's age to complete this topic Insurance MEDICARE [facility] Care Teams Precision Devices Inspector/Tester Relationship Specialty Start Date End Date Justin Ro MD [address] [address] PCP - General NEUROLOGICAL SURGERY 04/15/21 Temo Ureña MD [address] [address] CARDIOVASCULAR DISEASE 07/19/21
== END 2024-03-31 10:50 | disposition home or self-care (01) ==
LOC: ANHAUDIO 10:50
PROVIDERS: PCP Internal Medicine; Visit Provider Internal Medicine
DX: Z01.10 Encounter for examination of ears and hearing without abnormal findings (principal); H93.13 Tinnitus, bilateral; H90.3 Sensorineural hearing loss, bilateral
CPT/HCPCS: 92557; 92567